=== PATIENT | male | born 1965 | race Two or more races ===

== ENCOUNTER → 2020-08-29 13:44 | Outpatient (BNVA) | payer BC, SELFPAY | PROVIDERS: PCP Nurse Practitioner Family; Visit Provider Surgery | DX: K62.89 Other specified diseases of anus and rectum (principal) | CPT/HCPCS: 46600 ==

== ENCOUNTER 2020-12-26 12:23 | Outpatient (REF) | payer BC, SELFPAY ==
[2020-12-26 14:22] LABS: Alanine Aminotransferase 27 U/L (0-40); Albumin Level 4.4 g/dL (3.5-5.0); Alkaline Phosphatase 87 U/L (39-117); Anion Gap 10 (12-20); Aspartate Amino Transferase 20 U/L (5-37); Bilirubin Total 0.5 mg/dL (0.0-1.0); Blood Urea Nitrogen 20 mg/dL (9-16); Calcium 9.4 mg/dL (8.4-10.2); Carbon Dioxide 27 mmol/L (22-29); Chloride 106 mmol/L (96-108); Cholesterol 188 mg/dL; Estimated Glomerular Filt Rate > 60; Glucose Fasting 96 mg/dL (60-99); HDL Cholesterol 43 mg/dL; LDL Cholesterol Calculated 118 mg/dl; Potassium 4.4 mmol/L (3.3-5.1); Sodium 139 mmol/L (135-145); Total Protein 7.5 g/dL (6.5-8.0); Triglycerides 136 mg/dL
[2020-12-26 14:45] LABS: TSH reflex Free T4 1.36 uIU/mL (0.32-4.0)
== END 2020-12-26 12:24 | disposition home or self-care (01) ==
LOC: HO.HMGCLDS 12:23
PROVIDERS: PCP Nurse Practitioner Family; Visit Provider Nurse Practitioner Family
DX: T78.40XA Allergy, unspecified, initial encounter (principal); X58.XXXA Exposure to other specified factors, initial encounter; Z12.5 Encounter for screening for malignant neoplasm of prostate
CPT/HCPCS: 36415; 80053; 80061; 84153; 84443

== ENCOUNTER 2021-06-24 10:46 | Outpatient (REF) | payer BC, SELFPAY ==
--- NOTE | ~2021-06-24 | XR_ITS ---
EXAMINATION: XR CERVICAL SPINE CLINICAL INFORMATION: M50.90 - Cervical disc disorder, unspecified COMPARISON: None TECHNIQUE: 3 views of the cervical spine were obtained. FINDINGS: Cervical vertebrae have normal height. Normal alignment. No fracture or subluxation. Mild spur at the anterior endplates at C5-C6. C5-C6 disc height slightly narrowed. Facet joints are normal. XR/XR cervical spine 3V IMPRESSION: Mild degenerative disc disease at C5-C6.
== END 2021-06-24 10:47 | disposition home or self-care (01) ==
LOC: HO.HMGCX 10:46
PROVIDERS: PCP Nurse Practitioner Family; Visit Provider Nurse Practitioner Family
DX: M50.90 Cervical disc disorder, unspecified, unspecified cervical region (principal)
CPT/HCPCS: 72040

== ENCOUNTER 2021-07-15 09:09 | Outpatient (RCR) | payer BC, SELFPAY ==
[2021-07-15 09:17] VITALS: BP 129/83; PULSE 80
--- NOTE | 2021-07-15 10:18 | MHC.PT.EP ---
[facility] [place] Office [place] Office [place] Office [address] [place] [address] [phone] F: [phone] F: [phone] F: [phone] F: [phone] Physical Therapy Plan of Care Date of Evaluation: Date of Surgery: NA Diagnosis: Cervical neck pain with evidence of disc disease Assessment: Corinna is a 55 year old male who is referred to PT for cervical neck pain with evidence of disc disease . He reports of having insidious onset of neck pain about a year back. 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 He reports of having 8/10 pain in B UT, neck and L UE. He presented with TTP over B UT, medial border of B scapula, decreased cervical ROM, decreased muscle strength, and impaired posture. He is independent with all ADLS but has pain with them and modifies the way he does them due to this. He would benefit from skilled PT to address the aforementioned impairments and improve tolerance to functional activities. Frequency and Duration: The patient will be seen 2/week for 5 weeks Short Term Goals: 1. Pt will present with centralized symptoms which will enable him to use his L UE more efficiently with self care activities in 2 weeks. 2. Pt will be able to move his neck through all planes of motion without pain which will enable him with drive without any pain in 3 weeks. Half-Way Goals: 1. Pt will demonstrate an increase in muscle strength by 1 grade which will enable him to perform all IADLS like cleaning, cooking, grocery without any pain in 4 weeks. 2. Pt will be independent with HEPs for symptom management and maintenance following d/c in 5 weeks. Treatment Plan: Modalities to reduce pain, spasms and effusion. Manual therapy to restore motion and function. Therapeutic exercise to improve strength and flexibility. Neuromuscular re-education for posture and balance. Therapeutic activities to return to functional activities of daily living. Electronically signed by: Shalini Randall PT DPT Please sign and return to therapist. Thank you for your referral.
--- NOTE | 2021-07-31 08:22 | MHC.PT.DC ---
[facility] [place] Office [place] Office [place] Office [address] [place] [address] [phone] F: [phone] F: [phone] F: [phone] F: [phone] Physical Therapy Discharge Report Diagnosis: Cervical neck pain with evidence of disc disease Date of Surgery: NA Date of Evaluation: 07/15/21 Date of Discharge: 07/31/21 Treatments to Date: 1 Cancellations to Date: 0 No Shows to Date: Discharge Status: Visit Non-compliance Discharge Summary: Ali no showed for 3 appointments after evaluation. Attempted to call the pt and left voice mail. Pt however did not respond to calls. He has therefore been d/c from therapy. Electronically signed by: Shalini Randall PT DPT Please sign and return to therapist. Thank you for your referral.
== END 2021-07-31 08:26 | disposition home or self-care (01) ==
LOC: HO.PT 09:09
PROVIDERS: PCP Nurse Practitioner Family; Visit Provider Nurse Practitioner Family
DX: M50.90 Cervical disc disorder, unspecified, unspecified cervical region (principal)
CPT/HCPCS: 97112; 97161

== ENCOUNTER 2022-03-11 16:19 | Outpatient (REF) | payer BC, SELFPAY ==
[2022-03-11 16:37] LABS: MANUAL DIFF FLAG NO
[2022-03-11 17:20] LABS: Appearance Urine CLEAR; Color Urine YELLOW; Glucose Urine UA NEG (NEG); Leukocyte Esterase Urine NEG (NEG); Nitrite Urine NEG (NEG); Urine Blood NEG (NEG); Urine Ketones NEG (NEG); Urine Protein NEG (NEG-TRACE)
[2022-03-11 17:20] LABS: Basophils Absolute Auto 0.1 X10*3/uL (0.0-0.2); Basophils Percent Auto 0.7 % (0-2); Eosinophils Absolute Auto 0.2 X10*3/uL (0.0-0.4); Eosinophils Percent Auto 2.1 % (0-4); Hematocrit 42.7 % (42.0-52.0); Imm Gran Abs Auto 0.02 X10*3/uL (0.00-0.03); Imm Gran Pct Auto 0.3 % (0.0-0.4); Lymphocytes Absolute Auto 2.3 X10*3/uL (1.2-4.9); Lymphocytes Percent Auto 32.5 % (20-40); Mean Corpuscular HGB Conc 35.1 g/dl (31.0-36.0); Mean Corpuscular Hemoglobin 29.4 pg (27.0-33.0); Mean Corpuscular Volume 83.7 fL (80.0-98.0); Mean Platelet Volume 9.7 fL (9.4-12.4); Monocytes Absolute Auto 0.6 X10*3/uL (0.1-1.2); Monocytes Percent Auto 7.9 % (2-11); Neutrophils Percent Auto 56.5 % (45-73); Platelet Count 299 X10*3/uL (160-400); Red Cell Distribution Width 12.5 % (11.0-16.0)
[2022-03-11 18:05] LABS: Alanine Aminotransferase 19 U/L (0-40); Albumin Level 4.5 g/dL (3.5-5.0); Alkaline Phosphatase 72 U/L (39-117); Anion Gap 15 (12-20); Aspartate Amino Transferase 22 U/L (5-37); Blood Urea Nitrogen 12 mg/dL (9-16); Calcium 9.4 mg/dL (8.4-10.2); Carbon Dioxide 24 mmol/L (22-29); Chloride 105 mmol/L (96-108); Cholesterol 157 mg/dL; Estimated Glomerular Filt Rate > 60; Glucose Fasting 85 mg/dL (60-99); HDL Cholesterol 43 mg/dL; LDL Cholesterol Calculated 101 mg/dl; Sodium 140 mmol/L (135-145); Total Protein 7.4 g/dL (6.5-8.0); Triglycerides 66 mg/dL
[2022-03-11 18:26] LABS: Prostate Specific Antigen Scr 0.85 ng/mL (<0.05-4.0); TSH reflex Free T4 1.16 uIU/mL (0.32-4.0)
== END 2022-03-11 16:20 | disposition home or self-care (01) ==
LOC: HO.LAB 16:19
PROVIDERS: PCP Nurse Practitioner Family; Visit Provider Nurse Practitioner Family
DX: Z00.00 Encounter for general adult medical examination without abnormal findings (principal); Z12.5 Encounter for screening for malignant neoplasm of prostate
CPT/HCPCS: 36415; 80053; 80061; 81003; 84153; 84443; 85025

== ENCOUNTER 2022-09-10 16:28 | Outpatient (REF) | payer BC, SELFPAY ==
[2022-09-10 16:39] LABS: MANUAL DIFF FLAG NO
[2022-09-10 17:03] LABS: Basophils Absolute Auto 0.1 X10*3/uL (0.0-0.2); Basophils Percent Auto 0.8 % (0-2); Eosinophils Absolute Auto 0.2 X10*3/uL (0.0-0.4); Eosinophils Percent Auto 3.1 % (0-4); Hematocrit 44.3 % (42.0-52.0); Hemoglobin 14.9 g/dl (14.0-18.0); Imm Gran Abs Auto 0.02 X10*3/uL (0.00-0.03); Imm Gran Pct Auto 0.3 % (0.0-0.4); Lymphocytes Absolute Auto 2.6 X10*3/uL (1.2-4.9); Lymphocytes Percent Auto 32.8 % (20-40); Mean Corpuscular HGB Conc 33.6 g/dl (31.0-36.0); Mean Corpuscular Hemoglobin 29.4 pg (27.0-33.0); Mean Corpuscular Volume 87.4 fL (80.0-98.0); Mean Platelet Volume 9.4 fL (9.4-12.4); Monocytes Absolute Auto 0.6 X10*3/uL (0.1-1.2); Monocytes Percent Auto 7.4 % (2-11); Neutrophils Absolute Auto 4.4 x10*3/uL (2.0-8.3); Neutrophils Percent Auto 55.6 % (45-73); Platelet Count 261 X10*3/uL (160-400); Red Blood Count 5.07 X10*6/uL (4.60-5.80); Red Cell Distribution Width 12.5 % (11.0-16.0); White Blood Count 7.8 X10*3/uL (4.8-10.8)
[2022-09-10 17:10] LABS: Appearance Urine Clear; Color Urine Dark Yellow; Glucose Urine UA Negative (Negative); Leukocyte Esterase Urine Negative (Negative); Nitrite Urine Negative (Negative); Specific Gravity - Urine >= 1.030 (1.005-1.025); Urine Blood Negative (Negative); Urine Ketones Negative (Negative); Urine Protein Negative (Neg-Trace)
[2022-09-10 17:37] LABS: Alanine Aminotransferase 24 U/L (0-40); Albumin Level 4.3 g/dL (3.5-5.0); Alkaline Phosphatase 70 U/L (39-117); Anion Gap 8 (12-20); Aspartate Amino Transferase 21 U/L (5-37); Bilirubin Total 0.9 mg/dL (0.0-1.0); Blood Urea Nitrogen 15 mg/dL (9-16); Calcium 9.3 mg/dL (8.4-10.2); Carbon Dioxide 28 mmol/L (22-29); Chloride 109 mmol/L (96-108); Cholesterol 197 mg/dL; Estimated Glomerular Filt Rate > 60; Glucose Fasting 76 mg/dL (60-99); HDL Cholesterol 41 mg/dL; LDL Cholesterol Calculated 142 mg/dl; Potassium 3.9 mmol/L (3.3-5.1); Sodium 141 mmol/L (135-145); Triglycerides 73 mg/dL
== END 2022-09-10 16:29 | disposition home or self-care (01) ==
LOC: HO.LAB 16:28
PROVIDERS: PCP Nurse Practitioner Family; Visit Provider Nurse Practitioner Family
DX: Z00.00 Encounter for general adult medical examination without abnormal findings (principal)
CPT/HCPCS: 36415; 80053; 80061; 81003; 84443; 85025

== ENCOUNTER 2023-05-25 10:35 | Outpatient (AMB) | payer BC, SELFPAY ==
--- NOTE | 2023-05-25 10:53 | AM.OFFWIN_ITS ---
Intake Vital Signs 05/25/23 10:55 Height 5 ft 8 in BP 122/70 Blood Pressure Location Lt brachial Position Sitting Pulse 76 Pulse Source Pulse Oximeter Temp 97.8 F Temp Source Temporal Artery Scan Pulse Oximetry (%) 98 Intake Visit Reasons: EP LT leg Swelling/BP/Hemorrhoids Intake Note: pt is here c/o leg swelling and hemorrhoids Patient Tobacco Use Status: Never used Tobacco Allergies SEASONAL ALLERGIES Allergy (Intermediate, Uncoded 05/25/23 10:56) RUNNY NOSE pollen Allergy (Unknown, Uncoded 05/25/23 10:56) Runny Nose Do you need a note to return to daycare/school/sports/work: Yes HPI HPI Comments History of Present Illness Details 57-year-old male that presents for multi ple complaints. Patient endorses leg swelling over the last few weeks as well as internal hemorrhoids pain, and occasional nausea. Denies fevers chills chest pain shortness of breath. [facility] Medical History High BMI Hypertension Rectal pain Social History Housing: House Alcohol intake: never Patient Tobacco Use Status: Never used Tobacco e-Cigarette/Vaping Use: Never Used Second Hand Smoke Exposure: No Current occupational status: employed Current occupation: [employer] Current occupational exposures/hazards: No Cognitive needs: No Hearing needs: No Vision needs: No Review of Systems GI Reports nausea Details: Anal Pain Physical Exam Vital Signs: Last Vital Signs Temp 97.8 F 05/25/23 10:55 Pulse 76 05/25/23 10:55 BP 122/70 05/25/23 10:55 Pulse Ox 98 05/25/23 10:55 Const General: healthy appearing, comfortable, no acute distress and alert Orientation/consciousness: patient oriented x3 Limitations: no limitations HEENT Head: Yes normal to inspection Ears: hearing grossly normal bilaterally Resp Effort & Inspection: normal respiratory effort and able to speak in complete sentences Cardio Rate: regular rate Skin General skin exam: no rashes or lesions noted Neuro General: patient oriented x3 Extrem General: Yes normal to inspection Assessment & Plan Assessment & Plan (1) Rectal pain: Code(s): K62.89 - Other specified diseases of anus and rectum (2) Leg swelling: Code(s): M79.89 - Other specified soft tissue disorders Plan Exam largely unremarkabl. Regard to patient's internal hemorrhoids recommend increasing daily fiber as well as oral with his previous surgeon. Will trial a short course of rectal suppository steroid. In addition patient's nausea could be related to GERD will start omeprazole. With patient is leuks wound patient very neuritic hydrochlorothiazide. Will add on a short course of p.o. Lasix 10 mg once daily and recommend follow PCP. Discharge instructions, follow up and treatment are discussed with patient in my usual fashion. Alternatives in treatment are also discussed. The patient will return for worsening symptoms or as needed. Advised that any labs/imaging ordered will be followed up on and contact made if further treatment needed. Counseled that patient's condition may require further evaluation and/or treatment. Symptoms of concern for worsening disorder discussed in detail in my customary manner. Patient does verbalize understanding of the plan, there are no apparent barriers to communication. The patient is given the opportunity to ask questions and have them answered to his/her satisfaction Medications: New furosemide 10 mg (1/2 x 20 mg) PO DAILY 3 days 2 tabs 0RF hydrocortisone acetate Use for no more than 7 days 25 mg AR DAILY 12 ea 0RF omeprazole 20 mg PO DAILY 30 caps 0RF Coding Level of Care Code Est Pt Level 4 (05909) Diagnoses Rectal pain K62.89 Leg swelling M79.89
[2023-05-25 10:55] VITALS: BP 122/70; PULSE 76; TEMP 36.6; O2SAT 98
== END 2023-05-25 11:16 | disposition home or self-care (01) ==
PROVIDERS: PCP Nurse Practitioner Family; Visit Provider Physician Assistant
DX: K62.89 Other specified diseases of anus and rectum (principal); M79.89 Other specified soft tissue disorders
CPT/HCPCS: 99214

== ENCOUNTER 2023-09-14 14:46 | Outpatient (AMB) | payer BC, SELFPAY ==
[2023-09-14 14:50] VITALS: BP 130/76; PULSE 63; O2SAT 99; BMI 32.5
--- NOTE | 2023-09-14 14:50 | A.OFFPC_ITS ---
Vital Signs 09/14/23 14:50 Height 5 ft 8 in Weight 213 lb 8 oz BMI 32.5 BP 130/76 Blood Pressure Location Lt brachial Position Sitting Pulse 63 Pulse Source Pulse Oximeter Pulse Oximetry (%) 99 Oxygen Delivery Method Room Air Intake Visit Reasons: FMLA paper work Intake Note: Pt is here to fill out FMLA paperwork Allergies SEASONAL ALLERGIES Allergy (Intermediate, Uncoded 09/14/23 14:52) RUNNY NOSE pollen Allergy (Unknown, Uncoded 09/14/23 14:52) Runny Nose Medication List - Last Reconciled 09/14/23 by SHAYLEE Bro-JAMES betamethasone dipropionate 0.05% 1 appl topical DAILY PRN cetirizine (Allergy Relief (cetirizine)) 10 mg PO DAILY PRN hydrochlorothiazide 25 mg PO QAM hydrocortisone acetate 25 mg [place] DAILY hydrocortisone acetate (Anusol-HC) 25 mg IL BID PRN omeprazole 20 mg PO DAILY Tobacco use date assessed: 09/14/23 Dental Screening Dental Screen Date: 09/14/23 Did you have a dental visit in the last 12 months?: Yes Did you have a dental problem in the last 6 months where you did not have access to dental care?: No Was dental information given to patient?: Patient has dentist HPI FMLA paper work HPI Details Pt reports ongoing allergy symptoms. He reports that these cause him to have to leave work or miss days. Pt is already taking cetirizine for his symptoms, informed pt that he can go up to 20mg bid if needed. Will fill out pt's FMLA. Denies fever, chills, and dizziness. [facility] Medical History High BMI Hypertension Rectal pain Social History Housing: House Alcohol intake: never Patient Tobacco Use Status: Never used Tobacco e-Cigarette/Vaping Use: Never Used Second Hand Smoke Exposure: No Current occupational status: employed Current occupation: [employer] Current occupational exposures/hazards: No Cognitive needs: No Hearing needs: No Vision needs: No Questionnaire Thrive Questionnaire Date Thrive assessed: 09/09/22 AUDIT C Alcohol Use Questionnaire (AUDIT-C) 1. How often do you have a drink containing alcohol?: Never Total Score: 0 KYA-7 AMB Questionnaire KYA-7 Date KYA - 7 assessed: 09/09/22 Source: Developed by Drs. Boubacar Davidson, Pauly Cordero, Chuck White and colleagues, with an educational jessica from [employer]. Review of Systems Const Reports as per HPI Physical exam (Primary Care) Vital Signs: Last Vital Signs Pulse 63 09/14/23 14:50 BP 130/76 09/14/23 14:50 Pulse Ox 99 09/14/23 14:50 Oxygen Delivery Method Room Air 09/14/23 14:50 BMI result Body Mass Index 32.5 Tobacco/Smoking Status: Tobacco use Status Tobacco use date assessed 09/14/23 09/14/23 14:56 Patient Tobacco Use Status Never used Tobacco 09/14/23 14:56 e-Cigarette/Vaping Use Never Used 09/14/23 14:56 Thrive Assessment: Date of Thrive Assessment Date Thrive assessed 09/09/22 09/14/23 14:56 Const General: cooperative Nutritional Appearance: obese Orientation/consciousness: patient oriented x3 Resp Effort & Inspection: normal respiratory effort Auscultation: clear to auscultation bilaterally Cardio Rate: regular rate Rhythm: regular rhythm Heart sounds: S1 normal heart sound present and S2 normal heart sound present Neuro General: patient oriented x3 Psych Appearance: grossly normal Mental Status: mental status grossly normal Speech and movement: Normal speech and movement present Affect: normal affect Attitude: cooperative Thought process: Normal thought process present Thought content: Normal thought content present Insight: Good insight present (Psych) Judgement: Good judgement present (Psych) Assessment and Plan Assessment & Plan (1) Allergy: Code(s): T78.40XA - Allergy, unspecified, initial encounter Plan The patient agreed to the use of a medical educator for this encounter. Scribed for ANA LUISA Carrera by sam Correia scribe, on 09/14/2023 at 15:15 EST. Medications: New hydrocortisone acetate (Anusol-HC) 25 mg [place] BID PRN 24 ea 0RF hemorrhoids Coding Level of Care Code Est Pt Level 3 (21460) Diagnoses Allergy T78.40XA
== END 2023-09-14 15:27 | disposition home or self-care (01) ==
PROVIDERS: PCP Nurse Practitioner Family; Visit Provider Nurse Practitioner Family
DX: T78.40XA Allergy, unspecified, initial encounter (principal)
CPT/HCPCS: 99213

== ENCOUNTER 2023-11-03 10:58 | Outpatient (AMB) | payer BC, SELFPAY ==
[2023-11-03 11:10] VITALS: BP 128/82; PULSE 75; TEMP 36.7; O2SAT 100; BMI 32.0
--- NOTE | 2023-11-03 11:10 | AM.OFFWIN_ITS ---
Intake Vital Signs 11/03/23 11:10 Height 5 ft 8 in Weight 210 lb 4 oz BMI 32.0 BP 128/82 Blood Pressure Location Lt brachial Position Sitting Pulse 75 Pulse Source Pulse Oximeter Temp 98.1 F Temp Source Oral Pulse Oximetry (%) 100 Oxygen Delivery Method Room Air Intake Visit Reasons: EP Ear pain/Sinus, Congestion Intake Note: Pt presents to the office today for ear pain,sinus pressure x1 week. Patient Tobacco Use Status: Never used Tobacco Allergies SEASONAL ALLERGIES Allergy (Intermediate, Uncoded 11/03/23 11:52) RUNNY NOSE pollen Allergy (Unknown, Uncoded 11/03/23 11:52) Runny Nose Medication List - Last Reconciled 11/03/23 by SARITA Woods betamethasone dipropionate 0.05% 1 appl topical DAILY PRN betamethasone dipropionate 0.05% 1 appl topical BEDTIME PRN cephalexin 500 mg PO BID 7 days cetirizine (Allergy Relief (cetirizine)) 10 mg PO DAILY PRN hydrochlorothiazide 25 mg PO QAM hydrocortisone acetate (Anusol-HC) 25 mg [place] BID PRN omeprazole 20 mg PO DAILY penicillin V potassium 500 mg PO TID HPI HPI Comments History of Present Illness Details 58-year-old male presents today complain ing of right ear pain and preauricular lymphadenopathy. He also is complaining of cracking of the skin in between his toes. The patient was seen by his dentist to put him on penicillin that has not resolved his ear pain PFSH Medical History Rectal pain High BMI Hypertension Social History Housing: House Alcohol intake: never Patient Tobacco Use Status: Never used Tobacco e-Cigarette/Vaping Use: Never Used Second Hand Smoke Exposure: No Current occupational status: employed Current occupation: [employer] Current occupational exposures/hazards: No Cognitive needs: No Hearing needs: No Vision needs: No Review of Systems Const All systems reviewed & are unremarkable except as noted in HPI and below Physical Exam Vital Signs: Last Vital Signs Temp 98.1 F 11/03/23 11:10 Pulse 75 11/03/23 11:10 BP 128/82 11/03/23 11:10 Pulse Ox 100 11/03/23 11:10 Oxygen Delivery Method Room Air 11/03/23 11:10 BMI result Body Mass Index 32.0 HEENT Head: Yes normal to inspection, Yes normocephalic and Yes atraumatic Ears: hearing grossly normal bilaterally and TM abnormal bulging and erythematous General nose exam: Normal external nose present Face and sinus: Yes normal facial exam Resp Effort & Inspection: normal respiratory effort Auscultation: clear to auscultation bilaterally Cardio Rate: regular rate Rhythm: regular rhythm Skin Lesions: lesion noted (Cracking into the skin between the 4th and 5th toe.) Assessment & Plan Assessment & Plan (1) Otitis media, right: Code(s): H66.91 - Otitis media, unspecified, right ear Plan: Change his antibiotic to cephalexin for a year and will follow-up as needed (2) Shruthi infection: Code(s): B37.9 - Candidiasis, unspecified Plan: Keep his feet clean and dry and use the betamethasone ointment. Plan See plan Medications: New betamethasone dipropionate 0.05% 1 appl topical BEDTIME PRN 15 grams 0RF itching cephalexin 500 mg PO BID 14 caps 0RF 7 days Coding Level of Care Code Est Pt Level 3 (60989) Diagnoses Otitis media, right H66.91 Shruthi infection B37.9
== END 2023-11-03 12:42 | disposition home or self-care (01) ==
PROVIDERS: PCP Nurse Practitioner Family; Visit Provider Physician Assistant Medical
DX: H66.91 Otitis media, unspecified, right ear (principal); B37.9 Candidiasis, unspecified
CPT/HCPCS: 99213

== ENCOUNTER 2024-02-08 13:28 | Outpatient (AMB) | payer BC, SELFPAY ==
--- NOTE | 2024-02-08 13:31 | A.OFFPC_ITS ---
Vital Signs 02/08/24 13:36 02/08/24 14:15 Height 5 ft 8 in Weight 209 lb BMI 31.8 BP 140/100 H 130/88 Blood Pressure Location Lt brachial Lt brachial Position Sitting Sitting Pulse 82 Pulse Source Pulse Oximeter Pulse Oximetry (%) 98 Oxygen Delivery Method Room Air Intake Visit Reasons: Annual PE Intake Note: Patient here for physical exam. Allergies SEASONAL ALLERGIES Allergy (Intermediate, Uncoded 02/08/24 13:37) RUNNY NOSE pollen Allergy (Unknown, Uncoded 02/08/24 13:37) Runny Nose Tobacco use date assessed: 09/14/23 Dental Screening Dental Screen Date: 09/14/23 HPI Annual PE HPI Details Pt is here for a PE. Will order labs. Colon screen is up to date. Due for PSA, will order. Denies dribbling with urination, weak stream, and frequent nocturia. Pt reports some right chest discomfort with excessive physical activity. He reports that this does not radiate. Will do an EKG in office today. Will also order stress test. Pt reports a hx of ingrown toenails. His right big toenail was ingrown and pt's partially removed this. Pt states this will become ingrown again. He is requesting a referral to podiatry, will refer. Pt has been intermittently fasting and losing weight. [facility] Medical History Rectal pain High BMI Hypertension Social History Housing: House Alcohol intake: never Patient Tobacco Use Status: Never used Tobacco e-Cigarette/Vaping Use: Never Used Second Hand Smoke Exposure: No Current occupational status: employed Current occupation: [employer] Current occupational exposures/hazards: No Cognitive needs: No Hearing needs: No Vision needs: No Questionnaire Thrive Questionnaire Date Thrive assessed: 09/09/22 KYA-7 AMB Questionnaire KYA-7 Date KYA - 7 assessed: 09/09/22 Source: Developed by Drs. Boubacar Davidson, Pauly Cordero, Chuck White and colleagues, with an educational jessica from [employer]. Review of Systems Const Denies chills and Denies fever(s) Eyes Denies blurry vision ENT Denies vertigo, Denies dizziness and Denies sore throat Card Denies chest pain at rest, Reports chest pain with activity, Denies diaphoresis, Denies dyspnea and Denies dyspnea on exertion Resp Denies cough, Denies dyspnea, Denies dyspnea on exertion and Denies wheezing GI Denies abdominal pain, Denies melena, Denies hematochezia, Denies constipation, Denies diarrhea and Denies loose stools Denies hematuria Musc Denies numbness and Denies tingling Skin/Breast Denies lesions Neuro Denies vertigo, Denies dizziness, Denies numbness and Denies tingling Psych Denies anxiety, Denies depression, Denies homicidal ideation, Denies suicidal ideation and Denies other (substance abuse) Aller/Immun Denies wheezing Physical exam (Primary Care) Vital Signs: Last Vital Signs Pulse 82 02/08/24 13:36 BP 130/88 02/08/24 14:15 Pulse Ox 98 02/08/24 13:36 Oxygen Delivery Method Room Air 02/08/24 13:36 BMI result Body Mass Index 31.8 Tobacco/Smoking Status: Tobacco use Status Tobacco use date assessed 09/14/23 02/08/24 13:35 Patient Tobacco Use Status Never used Tobacco 02/08/24 13:35 e-Cigarette/Vaping Use Never Used 02/08/24 13:35 Thrive Assessment: Date of Thrive Assessment Date Thrive assessed 09/09/22 02/08/24 13:35 Const General: cooperative Nutritional Appearance: well nourished Orientation/consciousness: patient oriented x3 HENMT Head: Yes normal to inspection, Yes normocephalic and Yes atraumatic Ears: TM's normal bilaterally Eyes General: appearance normal, both eyes and all related structures Alignment and Position: alignment normal and position normal Neck Neck: Yes normal visual inspection and Yes no lymphadenopathy Thyroid: Thyroid normal Resp Effort & Inspection: normal respiratory effort Auscultation: clear to auscultation bilaterally Cardio Rate: regular rate Rhythm: regular rhythm Heart sounds: S1 normal heart sound present, S2 normal heart sound present and no murmurs GI Palpation (GI): Soft to palpation and nontender Auscultation: normal bowel sounds Male General Exam: Yes normal external exam Penis: normal penis Scrotum: scrotum normal, testes descended bilaterally and no inguinal hernias Testes: no testicular mass Skin Rashes: no rashes Neuro General: patient oriented x3, moves all extremities, no focal motor deficits and deep tendon reflexes 2+ bilaterally Romberg Test: Negative Extrem Other: tenderness to right big toe along lateral nail fold Psych Appearance: grossly normal Mental Status: mental status grossly normal Speech and movement: Normal speech and movement present Affect: normal affect Attitude: cooperative Thought process: Normal thought process present Thought content: Normal thought content present Insight: Good insight present (Psych) Judgement: Good judgement present (Psych) Assessment and Plan Assessment & Plan (1) Physical exam: Code(s): Z00.00 - Encounter for general adult medical examination without abnormal findings Plan: Labs ordered (2) Screening PSA (prostate specific antigen): Code(s): Z12.5 - Encounter for screening for malignant neoplasm of prostate Plan: PSA ordered (3) Chest pressure: Code(s): R07.89 - Other chest pain Plan: EKG benign, stress test ordered (4) Ingrown toenail: Code(s): L60.0 - Ingrowing nail Plan: referring to podiatry Plan The patient agreed to the use of a internist medical doctor md for this encounter. Scribed for SHAYLEE Carrera-BC by Shaniqua Meyer internist medical doctor md, on 02/08/2024 at 13:50 EST. Orders: Orders Complete Blood Count Auto Diff Today Z00.00 - Encounter for general adult medical examination without abnormal findings Comprehensive [place]. Panel Fast Today Z00.00 - Encounter for general adult medical examination without abnormal findings UA CC w/rflx Micro + Cult Today Z00.00 - Encounter for general adult medical examination without abnormal findings Prostate Specific Antigen Scr Today Z12.5 - Encounter for screening for malignant neoplasm of prostate AMB EKG-In Office Today R07.89 - Other chest pain CA stress test Today R07.89 - Other chest pain TSH reflex Free T4 Today Z00.00 - Encounter for general adult medical examination without abnormal findings Lipid Panel Today Z00.00 - Encounter for general adult medical examination without abnormal findings NM cardiolite stress test Today R07.89 - Other chest pain Referrals Podiatry Referral L60.0 - Ingrowing nail Coding Level of Care Code Est Pt Prev Care 40-64y(89141) Diagnoses Physical exam Z00.00 Screening PSA (prostate specific antigen) Z12.5 Chest pressure R07.89 Ingrown toenail L60.0
[2024-02-08 13:36] VITALS: BP 140/100; PULSE 82; O2SAT 98; BMI 31.8
[2024-02-08 14:15] VITALS: BP 130/88
== END 2024-02-08 14:39 | disposition home or self-care (01) ==
PROVIDERS: PCP Nurse Practitioner Family; Visit Provider Nurse Practitioner Family
DX: Z00.00 Encounter for general adult medical examination without abnormal findings (principal); Z12.5 Encounter for screening for malignant neoplasm of prostate; R07.89 Other chest pain; L60.0 Ingrowing nail
CPT/HCPCS: 99396

== ENCOUNTER 2024-02-08 14:40 | Outpatient (REF) | payer BC, SELFPAY ==
[2024-02-08 16:15] LABS: MANUAL DIFF FLAG NO
[2024-02-08 16:27] LABS: Basophils Percent Auto 0.5 % (0-2); Eosinophils Absolute Auto 0.2 X10*3/uL (0.0-0.4); Eosinophils Percent Auto 2.5 % (0-4); Hematocrit 42.3 % (42.0-52.0); Hemoglobin 14.4 g/dl (14.0-18.0); Imm Gran Abs Auto 0.03 X10*3/uL (0.00-0.03); Imm Gran Pct Auto 0.5 % (0.0-0.4); Lymphocytes Percent Auto 31.2 % (20-40); Mean Corpuscular Hemoglobin 29.6 pg (27.0-33.0); Mean Corpuscular Volume 86.9 fL (80.0-98.0); Mean Platelet Volume 9.6 fL (9.4-12.4); Monocytes Absolute Auto 0.5 X10*3/uL (0.1-1.2); Monocytes Percent Auto 7.4 % (2-11); Neutrophils Absolute Auto 3.8 x10*3/uL (2.0-8.3); Neutrophils Percent Auto 57.9 % (45-73); Platelet Count 260 X10*3/uL (160-400); Red Blood Count 4.87 X10*6/uL (4.60-5.80); Red Cell Distribution Width 12.5 % (11.0-16.0); White Blood Count 6.5 X10*3/uL (4.8-10.8)
[2024-02-08 16:29] LABS: Appearance Urine Clear; Color Urine Yellow; Glucose Urine UA Negative (Negative); Leukocyte Esterase Urine Negative (Negative); Nitrite Urine Negative (Negative); PH 6.5 (5.0-9.0); Specific Gravity - Urine 1.025 (1.005-1.025); Urine Blood Negative (Negative); Urine Ketones Negative (Negative); Urine Protein Negative (Neg-Trace)
[2024-02-08 16:37] LABS: Alanine Aminotransferase 27 U/L (0-40); Albumin Level 4.2 g/dL (3.5-5.0); Alkaline Phosphatase 69 U/L (39-117); Anion Gap 11 (12-20); Aspartate Amino Transferase 22 U/L (5-37); Bilirubin Total 0.5 mg/dL (0.0-1.0); Blood Urea Nitrogen 15 mg/dL (9-16); Calcium 9.3 mg/dL (8.4-10.2); Carbon Dioxide 25 mmol/L (22-29); Chloride 108 mmol/L (96-108); Cholesterol 177 mg/dL (<200); Estimated Glomerular Filt Rate > 60; Glucose Fasting 91 mg/dL (60-99); HDL Cholesterol 43 mg/dL (>40); LDL Cholesterol Calculated 114 mg/dL (<100); Potassium 3.9 mmol/L (3.3-5.1); Sodium 140 mmol/L (135-145); Total Protein 7.1 g/dL (6.5-8.0); Triglycerides 102 mg/dL (<150)
[2024-02-08 16:52] LABS: Prostate Specific Antigen Scr 1.47 ng/mL (<0.05-4.0)
[2024-02-08 16:53] LABS: TSH reflex Free T4 1.06 uIU/mL (0.32-4.0)
== END 2024-02-08 14:41 | disposition home or self-care (01) ==
LOC: HO.HMGCLDS 14:40
PROVIDERS: PCP Nurse Practitioner Family; Visit Provider Nurse Practitioner Family
DX: Z00.00 Encounter for general adult medical examination without abnormal findings (principal); Z12.5 Encounter for screening for malignant neoplasm of prostate
CPT/HCPCS: 36415; 80053; 80061; 81003; 84153; 84443; 85025

== ENCOUNTER → 2024-03-21 08:20 | Outpatient (REF) | payer BC, SELFPAY ==
--- NOTE | ~2024-03-21 | NM_ITS ---
Exercise Myocardial perfusion study Indication: Chest pain to evaluate for myocardial ischemia Technique: The patient was brought in for an exercise perfusion study on 03/21/2024. Patient performed exercise as per Randell protocol and was injected 30 mCi of sestamibi was given intravenously one target HR was achieved. Images were obtained using the SPECT gamma camera interlaced with the gating device. Images were obtained in supine position. Resting perfusion study was performed on 03/22/2024. Patient was administered 30 mCi of sestamibi intravenously at rest. Images were then obtained in supine position. Images obtained with and without CT attenuation. Total DLP 80 mGy-cm. Images were processed with the software and compared side to side in short axis, horizontal long axis and vertical long axis views. Findings: The stress perfusion study showed both attenuated as well as non attenuated corrected images show normal uptake of radiotracer in all segment of LV myocardium.. The gated study shows normal LV systolic function with calculated LVEF of 60%. LV cavity is normal in size. The gated study shows normal systolic wall thickening and contraction of all segments. There is no transient ischemic dilation. Resting study shows no change in perfusion pattern compared to stress perfusion study. Gating at rest reveals normal systolic wall motion with ejection fraction at 76%. The findings are consistent with normal myocardial perfusion. NM/NM cardiolite stress test Impression: 1. Normal myocardial perfusion 2. Gated LVEF is 60% 3. Transient ischemic dilatation not present Stress EKG is negative for ischemia
--- NOTE | 2024-03-21 08:23 | CA_ITS ---
Acquisition Time: 2024-03-21 09:06:54 Total Exercise Time: 00:08:40 Test Indications: CP Medications: SEE H Protocol: [place] Max HR: 142 BPM 87% of Pred: 162 BPM Max BP: 142/070 mmHG Max Work Load: 10.1 METS Exercise stress test exercise 8 min 40 sec of [place] protocol achieving 87% MPHR, without anginal symptoms, with isolated PVC, with normotensive response to exercise, without EKG changes. Nuclear images pending. Test reviewed with Dr. Whyte. T wave inversion in V4-V6 resolved with limb lead placement Referred By: Jim Castellanos Overread By: Radha Kimble
== END ==
LOC: HO.CARD 08:20
PROVIDERS: PCP Nurse Practitioner Family; Visit Provider Nurse Practitioner Family
DX: R07.89 Other chest pain (principal)
CPT/HCPCS: 78452; 93017; A9500

== ENCOUNTER → 2024-03-21 08:23 | Outpatient (BNV) | payer BC, SELFPAY | PROVIDERS: PCP Nurse Practitioner Family; Visit Provider Nurse Practitioner | DX: R07.9 Chest pain, unspecified (principal) | CPT/HCPCS: 78452; 93016; 93018 ==

== ENCOUNTER 2024-08-14 11:34 | Outpatient (AMB) | payer BC, SELFPAY ==
--- NOTE | 2024-08-14 11:36 | A.OFFPC_ITS ---
Vital Signs 08/14/24 11:37 Height 5 ft 8 in Weight 212 lb 4 oz BMI 32.3 BP 120/70 Blood Pressure Location Rt brachial Position Sitting Pulse 80 Pulse Source Pulse Oximeter Pulse Oximetry (%) 98 Intake Visit Reasons: 6 month follow up Intake Note: pt is here for 6 mon f/up Account Service Associate Required: No Accompanied by: Self / Same As Patient Allergies SEASONAL ALLERGIES Allergy (Intermediate, Uncoded 08/14/24 11:37) RUNNY NOSE pollen Allergy (Unknown, Uncoded 08/14/24 11:37) Runny Nose Medication List - Last Reconciled 08/14/24 by Jim Castellanos, [facility]- betamethasone dipropionate 0.05% 1 appl topical DAILY PRN betamethasone dipropionate 0.05% 1 appl topical BEDTIME PRN cetirizine (Allergy Relief (cetirizine)) 10 mg PO DAILY PRN hydrochlorothiazide 25 mg PO QAM hydrocortisone acetate (Anusol-HC) 25 mg RI BID PRN omeprazole 20 mg PO DAILY Tobacco use date assessed: 08/14/24 Dental Screening Dental Screen Date: 08/14/24 Did you have a dental visit in the last 12 months?: Yes Did you have a dental problem in the last 6 months where you did not have access to dental care?: No Was dental information given to patient?: Patient has dentist HPI 6 month follow up HPI Details Chief Complaint Persistent and recurrent redness in the groin region. History of Present Illness The patient is a 58-year-old male presenting with chronic groin dermatitis. This condition has been ongoing in the bilateral groin region, characterized mainly by significant redness and a macular erythematous rash. The patient reports trying various topical creams over time, which offer temporary relief but fail to resolve the issue completely. He has been managing this condition by keeping the area dry. There is no mention of associated systemic symptoms such as fever, chills, or malaise. The issue persists despite past interventions. HTN: stable Social History Health Maintenance - Liver function tests scheduled for tod ay to evaluate suitability for oral medication. Review of Systems denies any CP, SOB, ESCOBAR, blurred vision, weeping from skin Physical Exam General: Cooperative, healthy appearing, comfortable, no acute distress and well developed Orientation: Patient oriented x3 Limitations: No limitations Head: Normal to inspection Ears: Hearing grossly normal bilaterally Nose: Normal external nose present Face and sinus: Normal facial exam Eyes: Appearance normal, both eyes and all related structures Neck: Normal visual inspection and Yes full ROM Respiratory: Normal respiratory effort and able to speak in complete sentences. Clear to auscultation bilaterally Cardiovascular: Regular rate and rhythm. Normal S1 and S2 GI: Normal to inspection. Soft to palpation and nontender Skin: Significant redness, macular erythematous in bilateral groin region Neuro: Patient oriented x3 Extremities: Normal to inspection Results Plan - Obtain liver function tests today to e nsure suitability for oral medication management. - Initiate oral medication for groin tima matitis following confirmation of normal liver function test results. Patient was informed and verbally consented to the use of an ambient scribe for clinic note documentation during this visit. Discussion Notes I discussed with the patient the nature of his chronic groin dermatitis and the limitations of topical treatments he has been using. I explained the potential benefits of transitioning to an oral medication regimen, while emphasizing the necessity of first ensuring adequate liver function through blood tests. I reinforced the importance of keeping the affected area dry and outlined a plan moving forward based on the results of his liver function tests. I advised the patient that follow-up appointments would be necessary to assess response to the new treatment. Patient Instructions - Undergo liver function tests today as discussed. - Continue current practice of keeping t he groin area dry. - Follow the new medication regimen as d iscussed after confirming liver health. - Contact our office if symptoms worsen or do not improve with the new medication. - Schedule follow-up appointments as dir ected to monitor treatment efficacy. [facility] Medical History Rectal pain High BMI Hypertension Surgical History No pertinent past surgical history Social History Housing: House Alcohol intake: never Patient Tobacco Use Status: Never used Tobacco e-Cigarette/Vaping Use: Never Used Second Hand Smoke Exposure: No Current occupational status: employed Current occupation: [employer] Current occupational exposures/hazards: No Cognitive needs: No Hearing needs: No Vision needs: No Questionnaire PHQ-9 Over the last 2 weeks, how often have you been bothered by any of the following problems? 1. Little interest or pleasure in doing things: not at all 2. Feeling down, depressed, or hopeless: not at all 3. Trouble falling or staying asleep, or sleeping too much: not at all 4. Feeling tired or having little energy: not at all 5. Poor appetite or overeating: not at all 6. Feeling bad about yourself - or that you are a failure or have let yourself or your family down: not at all 7. Trouble concentrating on things, such as reading the newspaper or watching television: not at all 8. Moving or speaking so slowly that other people could have noticed. Or the opposite - being so fidgety or restless that you have been moving around a lot more than usual: not at all 9. Thoughts that you would be better off or of hurting yourself in some wa y: not at all Total score: 0 Source: Developed by Drs. Boubacar Davidson, Pauly Cordero, Chuck White and colleagues, with an educational jessica from [employer]. Thrive Questionnaire Date Thrive assessed: 08/11/24 I am a: Patient What is your living situation today?: I have a steady place to live Within the past 12 months, did the food you bought not last and you didn't have the money to get more?: Never true Within the past 12 months, did you worry whether your food would run out before you got money to buy more?: Never true Do you have trouble paying for medicines?: No Do you have trouble getting transportation to medical appointments?: No Do you have trouble paying your heating and electricity bill?: I choose not to answer this question Do you have trouble taking care of your child, family member or friend?: No Do you have trouble with day-to-day activities such as bathing, preparing meals, shopping, managing finances, etc.?: No Are you currently unemployed and looking for a job?: No Are you interested in more education?: No Please select the resources that you would like help with: None Currently or been in a relationship where the following occur: I choose not to answer THRIVE Score: 0 AUDIT C Alcohol Use Questionnaire (AUDIT-C) 1. How often do you have a drink containing alcohol?: Never 3. How often do you have six or more drinks on one occasion?: Never Total Score: 0 KYA-7 AMB Questionnaire KYA-7 Date KYA - 7 assessed: 09/09/22 Feeling nervous, anxious, or on edge: 0 = Not at all Not being able to stop or control worryin = Not at all Worrying too much about different things: 0 = Not at all Trouble relaxin = Not at all Being so restless that it is hard to sit still: 0 = Not at all Becoming easily annoyed or irritable: 0 = Not at all Feeling afraid as if something awful might happen: 0 = Not at all Total KYA-7 score (0-4 normal; 5-9 mild; 10-14 moderate; 15-21 severe): 0 Source: Developed by Drs. Boubacar Davidson, Pauly Cordero, Chuck White and colleagues, with an educational jessica from [employer]. Physical exam (Primary Care) Vital Signs: Last Vital Signs Pulse 80 08/14/24 11:37 BP 120/70 08/14/24 11:37 Pulse Ox 98 08/14/24 11:37 BMI result Body Mass Index 32.3 Tobacco/Smoking Status: Tobacco use Status Tobacco use date assessed 08/14/24 08/14/24 11:43 Patient Tobacco Use Status Never used Tobacco 08/14/24 11:43 e-Cigarette/Vaping Use Never Used 08/14/24 11:43 PHQ-9: PHQ-9 Score PHQ-9: Total score 0 08/14/24 11:43 Thrive Assessment: Date of Thrive Assessment Date Thrive assessed 08/11/24 08/14/24 11:43 Currently or been in a relationship where the following occur: I choose not to answer Coding Level of Care Code Est Pt Level 3 (00125) Diagnoses Hypertension I10 Tinea cruris B35.6 Assessment & Plan Assessment & Plan (1) Hypertension: Code(s): I10 - Essential (primary) hypertension Category: Medical (2) Tinea cruris: Code(s): B35.6 - Tinea cruris Category: Medical Plan . Orders: Orders Comprehensive [place]. Panel Fast Today I10 - Essential (primary) hypertension Lipid Panel Today I10 - Essential (primary) hypertension Complete Blood Count Auto Diff Today I10 - Essential (primary) hypertension TSH reflex Free T4 Today I10 - Essential (primary) hypertension UA CC w/rflx Micro + Cult Today I10 - Essential (primary) hypertension Medications: New terbinafine HCl 250 mg PO DAILY 10 tabs 0RF 10 days
[2024-08-14 11:37] VITALS: BP 120/70; PULSE 80; O2SAT 98; BMI 32.3
--- OUTSIDE RECORDS SUMMARY | 2024-08-14 13:21 | XMS_ITS ---
Author Organization [facility] Address [address] [place] [address] Care Team Providers Care Digitizer Operator Name Role Phone Jim Wilkes Primary Care Provider Unav ailable Alonso Klein Unavailable [phone] REASON FOR VISIT 2 inch [place], toe ho Encounters Encounter Location Date Provider Diagnosis [facility] [address] [address] 06/14/2024 Alonso Klein Plan Of Treatment No Information Progress Notes * Corinna FIOREDOB:1965 (58 yo M)Acc No.[id number]:06/14/2024 Patient:?Corinna Fiore :1965???Age:58 Y???Sex:Male Address:[address] [place] [address], [address] * true * Date:? Generated for Can alcocer/Mary/eTransmitting on:?08/14/2024 01:21 PM EST
--- OUTSIDE RECORDS SUMMARY | 2024-08-14 13:21 | XMS_ITS | Patient Health Record ---
Author Organization [facility] Address [address] [place] [address] Care Team Providers Care Banking Analyst Name Role Phone Jim Wilkes Primary Care Provider Alonso Ordaz Unavailable [phone] Allergies Allergen (clinical drug ingredient) Drug/Non Drug Allergy documented on EMR Reaction Allergy Type Onset Date Status Pollen Pollen runny nose Allergy Active Reason For Referral No Information Medications Medication SIG (Take, Route, Frequency, Duration) Notes Start Date End Date Status Multivitamin Active Furosemide 20 MG Oral for 4 Days Active Omeprazole 20 MG Oral for 30 Days Active hydroCHLOROthiazide 25 MG Oral for 90 Days Active Ciclopirox Olamine 0.77 % 1 application Externally Twice a day to skin of feet including between the toes for 30 days Active Social History Tobacco Use: Social History Observation Description Date Details (start date - stop date) Never Smoker NA - NA Tobacco Use/Smoking Question Answer Notes Are you a: nonsmoker Additional Findings: Tobacco Non-User Current no n-smoker Alcohol Screen Question Answer Notes Did you have a drink containing alcohol in the p ast year? No Points 0 Interpretation Negative Tobacco use other than smoking: Question Answer Notes Are you an other tobacco user? No Vital Signs Height 5ft 8in in 06/14/2024 Weight 220 lbs 06/14/2024 BMI 33.45 kg/m2 06/14/2024 Procedures Procedure Date Ordered Date Performed Result Body Sit e [id number] Plate 06/14/2024 N/A Encounters Encounter Location Date Provider Diagnosis [facility] [address] [address] 06/14/2024 Alonso Latoya Ingrown nail L60.0 and Tinea pedis of both feet B35.3 [facility] [address] [place] [address] 06/14/2024 Alonso Klein Assessments Encounter Date Diagnosis (ICD Code) Assessment Notes Treatment Notes Treatment Clinical Notes Section Notes 06/14/2024 Ingrown nail (ICD-10 - L60.0) 06/14/2024 Tinea pedis of both feet (ICD-10 - B35.3) Plan Of Treatment Pending Test Test Name Order Date [id number] Plate 06/14/2024 Insurance Providers Payer Name Payer Address Payer Phone Subscriber Number Group Number Insured Name Patient Relationship to Insured Coverage Start Date Coverage End Date [facility] [address] [place] [address] [phone] [id number] Corinna Griffiths Self - patient is the insured Medical (General) History Medical History History ICD Code Seasonal allergies Hypertension rectal pain Reflux Surgical History Surgery Date(Month/Year) vein surgery, left leg
--- OUTSIDE RECORDS SUMMARY | 2024-08-14 13:21 | XMS_ITS ---
Author Organization [facility] Address [address] [place] [address] Care Team Providers Care Trailer Park Manager Name Role Phone Jim Wilkes Primary Care Provider Unav ailable Alonso Klein Unavailable [phone] Allergies Allergen (clinical drug ingredient) Drug/Non Drug Allergy documented on EMR Reaction Allergy Type Onset Date Status Pollen Pollen runny nose Allergy Active REASON FOR VISIT Ingrown Nail, Skin Problem Medications Medication SIG (Take, Route, Frequency, Duration) [...] Ordered Date Performed Result Body Sit e 98289-Pqxqzluq Plate 06/14/2024 N/A Encounters Encounter Location Date [facility] [address] [address] 06/14/2024 Alonso Klein Ingrown nail L60.0 and Tinea pedis of both feet B35.3 Assessments Encounter Date Diagnosis (ICD Code) Assessment Notes Treatment Notes Treatment Clinical Notes Section Notes 06/14/2024 Ingrown nail (ICD-10 - L60.0) 06/14/2024 Tinea pedis of both feet (ICD-10 - B35.3) Plan Of Treatment Medication Medication Name Sig Start Date Stop Date Notes Ciclopirox Olamine 0.77 % 1 application Externally Twice a day to skin of feet including between the toes for 30 days Pending Test Test Name Order Date 33837-Ykyszypb Plate 06/14/2024 Next Appt Details Follow Up: prn, Reason: Procedure Notes * Category Sub-Category Detail Notes Nail Avulsion Procedure A fine sterile e levator was placed between the eponychium, nail fold, and nail plate to separate the structures. A sterile nail splitter, and/or sterile 316 blade, was then used to longitudinally section the nail along its entire length through the eponychium to the area under the nail fold. The offending portion of nail was from the nail bed with a rolling action and then removed with a hemostat. No underlying bone was identified. There was minimal bleeding as hemostasis was achieved through the temporary use of either a digital tourniquet or the aforementioned local with epinephrine. A bacitracin sterile dressing was applied. Local wound aftercare instructions were discussed and dispensed. The patient was informed of both conservative and future surgical procedures to prevent recurrence. Tylenol or Motrin was recommended for pain or discomfort (96803) Anesthesia 3cc of 1 percent Lid ocaine/Epi 1:200,000 local anesthesic utilizing aseptic technique Location Lateral nail border , T5 Progress Notes * Corinna FIOREDOB:1965 (58 yo M)Acc No.[id number]:06/14/2024 Progress Notes Patient:?Corinna Fiore Provider:?Alonso Klein DPM :1965???Age:58 Y???Sex:Male Adalberto e:06/14/2024 Address:[address] [place] [address] [facility] Pcp:Jim Glogowski, LICENSED MENTAL HEALTH COUNSELOR-BC Subjective: * Chief Complaints: * ???Agnes AshtonSkin Problem * HPI: ???Skin problems:?Nature:?scaling , redness.?Location:?B/L .?Duration:?several days.?Course:?worse.? * ROS:?General/Constitutional:?Nausea?denies.?Vomiting?denies.?Hunger Thirst?denies.?Loss appetite?denies.?Chills?denies.?Fatigue?denies.?Fever?denies.?Night Sweats?denies.?Unexplained weight loss?denies.?Unexplained weight gain?denies.?HEENTM:?Dentures?denies.?Dizziness?denies.?Glasses/contacts?admits.?Retinopathy?de nies.?Blurred/double vision?denies.?TMJ?denies.?Discharge/drainage?denies.?Implants?denies.?Sore throat?denies.?Dental implants?denies.?Hard of hearing ?denies.?Difficulty chewing/swallowing/speaking?denies.?Nose bleeds?denies.?Sore mouth?denies.?Respiratory:?On Oxygen?denies.?Pneumonia/pleurisy?denies.?Bronchitis?denies.?Emphysema?denies.?C oughing?denies.?Cough blood?denies.?Shortness of breath?denies.?Wheezing?denies.?Cardiovascular:?Pacemaker?denies.?MVP?denies.?WPW?denies.?CHF?denies.?Heart attack?denies.?Septal defect?denies.?Rapid beat?denies.?Chest pain ?denies.?Atrial Fib.?denies.?Murmur/Palpitations?denies.?Gastrointestinal:?Hemorrhoids?denies.?Stomach/Abdominal pain?denies.?Dark blood stool?denies.?Irritable bowel ?denies.?Constipation?denies.?Diarrhea?denies.?Hematology:?Swelling?denies.?Clots?denies.?Varicose Veins?denies.?Bruising?denies.?Bleeding problem?denies.?Genitourinary:?Blood urine?denies.?Frequent/Painfu/urination/bladder control?denies.?Kidney stones?denies.?Infection (UTI)?denies.?Nephropathy?denies.?sex trans dis (STD)?denies.?Prostate?denies.?Musculoskeletal:?Hammertoes?denies.?Bunions?denies.?Back Pain?denies.?Muscle Cramps/ Resting?denies.?Muscle cramps / walking?denies.?Generalized aches and pains?denies.?Weakness?denies.?Integ.:?[place]?denies.?Scars?denies.?Corns/calluses?denies.?Ingrown nails?admits.?Painful nails?denies.?Open Sores?denies.?Rashes?denies.?Neurologic:?Difficulty sleeping?denies.?Brain disorder?denies.?Numbness?denies.?Balance trouble?denies.?Confusion?denies.?Fainting/blackouts?denies.?Tingling?denies.?Tr emors?denies.? * Medical History:? * Surgical History:?vein surge ry, left leg * Hospitalization/Major Diagno stic Procedure:?No Hospitalization History. * Family History:?Mother: vika timmons, diagnosed with Unspecified essential hypertension.?Father: , diagnosed with Diabetic - NIDDM.? * Social History:?Tobacco Use:?Tobacco Use/Smoking?Are you a:?nonsmoker ?Additional Findings: Tobacco Non-User?Current non-smoker ?Tobacco use other than smoking?Are you an other tobacco user??No ???Drugs/Alcohol:?Drugs?Have you used drugs other than those for medical reasons in the past 12 months??No ?Alcohol Screen?Did you have a drink containing alcohol in the past year??No ?Points?0 ?Interpretation?Negative ???Miscellaneous:?Caffeine: yes, 1-2 cups per day. ?Exercise: yes, walking. ?Marital status: . ?Occupation: Works Full-time. * Medications:?TakingMultivita min Furosemide 20 MG Tablet Oral Omeprazole 20 MG Capsule Delayed Release Oral hydroCHLOROthiazide 25 MG Tablet Oral Medication List reviewed and reconciled with the patientTaking Multivitamin Taking Furosemide 20 MG Tablet Oral Taking Omeprazole 20 MG Capsule Delayed Release Oral Taking hydroCHLOROthiazide 25 MG Tablet Oral Medication List reviewed and reconciled with the patient * Allergies:?Pollen: runny nos eyes[Allergies Verified] Objective: * Vitals:?Ht: 5ft 8in, Wt:220, BMI:33.45, Shoe size: 11.5, Ht-cm: 172.72 cm, Wt- k.79 kg. * Examination: ???Ingrown Nail: ?INSPECTION:?Reveals nail incurvation, pain on palpation, groove hypertrophy , Lateral nail border , T5.?General Examination: ?GENERAL APPEARANCE:?Reveals a pleasant, alert, well-nourished, well- developed, well hydrated individual, who demonstrates proper attention to hygiene/body habitus, and is in no acute distress, Pt serves as own?historian for office visit today.?ORIENTED:?person, place, and time.?Neurological: ?SENSORY:?Neurological exam reveals intact sensorium, pain sensation normal, vibration sensation intact, pinprick sensation is normal in the lower extremities, Pt denies, anesthesia, burning, paresthesia, tingling, B/L.?DEEP TENDON REFLEXES:?Achilles, 2/4, B/L.?Vascular: ?DP PULSES(B):?3/4, B/L.?PT PULSES(B):?3/4, B/L.?CAPILLARY FILL TIME:?immediate, all digits, B/L.?TROPHIC CONDITION-TEXTURE/ELASTICITY/TURGOR/HAIR GROWTH(B):?normal, B/L.?TEMPERTURE GRADIENT(C):?warm to cool, proximal to distal, B/L.?PIGMENTATION:?normal, B/L.?EDEMA(C):?absent, B/L.?Dermatologic: ?SKIN FINDINGS:? Skin shows sign(s) of, erythema, scaling, in a moccasin fashion, no fissure(s) present, B/L, Skin shows sign(s) of, inflammation, interdigital maceration, vesicles, pruritus, B/L.?Orthopedic: ?MUSCLE STRENGTH:?5/5 all groups in a symmetrical fashion , B/L.? Assessment: * Assessment: 1.?Ingrown nail - L60.0, Lat eral nail border, T5?2.?Tinea pedis of both feet - B35.3, Acute problem, Uncomplicated (3),Rx drug management (4)? Plan: * Treatment: 2.?Tinea pedis of both feet? Start Ciclopirox Olamine Cream, 0.77 %, 1 application, Externally, Twice a day to skin of feet including between the toes, 30 days, 60, Refills 2.?? * Procedures:?Nail Avulsion:?Location?Lateral nail border , T5.?Anesthesia?3cc of 1 percent Lidocaine/Epi 1:200,000 local anesthesic utilizing aseptic technique.?Procedure?A fine sterile elevator was placed between the eponychium, nail fold, and nail plate to separate the structures. A sterile nail splitter, and/or sterile 316 blade, was then used to longitudinally section the nail along its entire length through the eponychium to the area under the nail fold. The offending portion of nail was from the nail bed with a rolling action and then removed with a hemostat. No underlying bone was identified. There was minimal bleeding as hemostasis was achieved through the temporary use of either a digital tourniquet or the aforementioned local with epinephrine. A bacitracin sterile dressing was applied. Local wound aftercare instructions were discussed and dispensed. The patient was informed of both conservative and future surgical procedures to prevent recurrence. Tylenol or Motrin was recommended for pain or discomfort (22642).? * Procedure Codes:?57450 Avuls ion Plate, Modifiers: T5 * Preventive Medicine:? ??Counseling:?Discussion:?-03: Office or other outpatient visit for the evaluation and management of a new patient, which required a medically appropriate history and/or examination and LOW level of DECISION MAKING for: 1 STABLE ACUTE UNCOMPLICATED PROBLEM, 2 OR MORE MINOR PROBLEMS, OR 1 STABLE CHRONIC PROBLEM, THAT POSE(S) A LOW RISK FOR MORBIDITY/MORTALITY. The visit on the day of the encounter encompassed interpreting the data and educating the patient as to the nature of their condition, treatment options available according to their individual PMH, meds, allergies, and overall health/living conditions, as well as any potential risks or complications that may occur from a failure to adhere to, and participate in, the recommended course of therapy. The discussion included a complete verbal, and/or written explanation of the examination results, any x-rays taken, the proposed diagnosis, and outline of the treatment plan. A schedule for future care needs was also explained. The patient verbalized an understanding of the instructions at this time and agreed to be an active participant in their treatment. If the patient should think of any questions or concerns after the visit, I have encouraged the patient to call the office.?Tinea Pedis:?The patient was counseled on the diagnosis, potential etiologies, and treatment options for their skin condition. We discussed the risks and benefits of each option from performing no treatment, to utilizing OTC topical skin creams, prescription topical creams, customized compounded topical medications, and, if necessary, to utilize oral antifungal therapy. We discussed the advantages and disadvantages of each possible treatment and importance for adherence to all the recommended therapies for optimum success and avoid potential complications such as open sore/infection/possible hospitalization. We discussed the potential effectiveness of each topical preparation as well as each ones possible side effects and/or patient medication interactions if oral therapy is selected. Patient questions re: the advantages and disadvantages of each treatment choice, medication use/dosage, successful outcomes, and application consistency were reviewed and the patient verbalized that all answers were clearly understood. The patient was told they can help alleviate symptoms by utilizing moisture absorbant innersoles with activated charcoal and baking soda, applying antifungal sprays daily, aerating toe web spaces at night by putting cotton or lambs wool between the toes, alternating shoe gear daily if possible so they can dry out, changing socks at least once during the day, wearing well-ventilated shoes or sandals. The patient has decided to apply antifungal skin creams to their feet as directed. Rx was sent to their pharmacy at the time of visit.? * Follow Up:?prn * Images: * Sign off status: Completed true * Provider:?Alonso Klein DPM Date:?2023 Generated for Can alcocer/Mary/Domingo on:?08/14/2024 01:21 PM EST History and Physical Notes * HPI (History of Present Illness) Category Sub-Category Detail Notes Category Not es Skin problems Nature: scaling , redness Location: B/L Duration: several days Course: worse Examination Category Sub-Category Detail Notes Category Not es Ingrown Nail INSPECTION: Reveals nail inc urvation, pain on palpation, groove hypertrophy , Lateral nail border , T5 Neurological SENSORY: Neurological exa m reveals intact sensorium, pain sensation normal, vibration sensation intact, pinprick sensation is normal in the lower extremities, Pt denies, anesthesia, burning, paresthesia, tingling, B/L DEEP TENDON REFLEXES: Achilles, 2/4, B/L Dermatologic SKIN FINDINGS: Skin shows sign( s) of, erythema, scaling, in a moccasin fashion, no fissure(s) present, B/L, Skin shows sign(s) of, inflammation, interdigital maceration, vesicles, pruritus, B/L Orthopedic MUSCLE STRENGTH: 5/5 all groups in a symm etrical fashion , B/L General Examination GENERAL APPEARANCE: Reveals a pleasant, alert, well- nourished, well-developed, well hydrated individual, who demonstrates proper attention to hygiene/body habitus, and is in no acute distress, Pt serves as own historian for office visit today ORIENTED: person, place, and t manuel Vascular DP PULSES (B): 3/4, B/L PT PULSES (B): 3/4, B/L CAPILLARY FILL TIME: immediate, all digi ts, B/L TEMPERTURE GRADIENT (C): warm to cool, p roximal to distal, B/L TROPHIC CONDITION-TEXTURE/ELASTICITY/TURGOR/HAIR GROWTH (B): normal, B/L EDEMA (C): absent, B/L PIGMENTATION: normal, B/L
== END 2024-08-14 12:11 | disposition home or self-care (01) ==
PROVIDERS: PCP Nurse Practitioner Family; Visit Provider Nurse Practitioner Family
DX: I10 Essential (primary) hypertension (principal); B35.6 Tinea cruris

== ENCOUNTER 2024-08-14 11:34 | Outpatient (REF) | payer BC, SELFPAY ==
[2024-08-14 13:12] LABS: Appearance Urine Clear; Color Urine Yellow; Glucose Urine UA Negative (Negative); Leukocyte Esterase Urine Negative (Negative); Nitrite Urine Negative (Negative); PH 5.5 (5.0-9.0); Specific Gravity - Urine 1.025 (1.005-1.025); Urine Blood Negative (Negative); Urine Ketones Negative (Negative); Urine Protein Negative (Neg-Trace)
[2024-08-14 13:21] LABS: MANUAL DIFF FLAG NO
[2024-08-14 13:23] LABS: Basophils Percent Auto 0.5 % (0-2); Eosinophils Absolute Auto 0.3 X10*3/uL (0.0-0.4); Eosinophils Percent Auto 3.7 % (0-4); Hematocrit 44.8 % (42.0-52.0); Hemoglobin 15.2 g/dl (14.0-18.0); Imm Gran Abs Auto 0.02 X10*3/uL (0.00-0.03); Imm Gran Pct Auto 0.3 % (0.0-0.4); Lymphocytes Absolute Auto 2.8 X10*3/uL (1.2-4.9); Lymphocytes Percent Auto 34.9 % (20-40); Mean Corpuscular HGB Conc 33.9 g/dl (31.0-36.0); Mean Corpuscular Hemoglobin 29.6 pg (27.0-33.0); Mean Corpuscular Volume 87.2 fL (80.0-98.0); Mean Platelet Volume 9.5 fL (9.4-12.4); Monocytes Absolute Auto 0.6 X10*3/uL (0.1-1.2); Monocytes Percent Auto 7.2 % (2-11); Neutrophils Absolute Auto 4.2 x10*3/uL (2.0-8.3); Neutrophils Percent Auto 53.4 % (45-73); Platelet Count 267 X10*3/uL (160-400); Red Blood Count 5.14 X10*6/uL (4.60-5.80); White Blood Count 7.9 X10*3/uL (4.8-10.8)
[2024-08-14 13:56] LABS: Alanine Aminotransferase 45 U/L (0-40); Albumin Level 4.2 g/dL (3.5-5.0); Alkaline Phosphatase 76 U/L (39-117); Anion Gap 9 (12-20); Aspartate Amino Transferase 32 U/L (5-37); Bilirubin Total 0.5 mg/dL (0.0-1.0); Blood Urea Nitrogen 13 mg/dL (9-16); Calcium 9.2 mg/dL (8.4-10.2); Carbon Dioxide 25 mmol/L (22-29); Chloride 111 mmol/L (96-108); Cholesterol 166 mg/dL (<200); Estimated Glomerular Filt Rate > 60; Glucose Fasting 98 mg/dL (60-99); HDL Cholesterol 43 mg/dL (>40); LDL Cholesterol Calculated 101 mg/dL (<100); Potassium 3.7 mmol/L (3.3-5.1); Sodium 141 mmol/L (135-145); Total Protein 7.2 g/dL (6.5-8.0); Triglycerides 113 mg/dL (<150)
[2024-08-14 14:04] LABS: TSH reflex Free T4 3.35 uIU/mL (0.32-4.0)
== END 2024-08-14 11:35 | disposition home or self-care (01) ==
LOC: HO.HMGCLDS 11:34
PROVIDERS: PCP Nurse Practitioner Family; Visit Provider Nurse Practitioner Family
DX: I10 Essential (primary) hypertension (principal)
CPT/HCPCS: 36415; 80053; 80061; 81003; 84443; 85025

== ENCOUNTER 2024-08-24 10:17 | Outpatient (REF) | payer BC, SELFPAY ==
--- NOTE | ~2024-08-24 | US_ITS ---
CLINICAL HISTORY: R74.8 - Abnormal levels of other serum enzymes US abdomen complete Comparison: None Findings: The visualized pancreas is normal. The aorta and inferior vena cava are normal caliber. The liver is normal in size and echotexture. There is no intrahepatic bile duct dilatation. The common duct is 4.3 mm in diameter. There are gallstones with the gallbladder otherwise unremarkable. There is no sonographic Colindres sign. The main portal vein is antegrade. The right kidney is 10.0 cm in length. The left kidney is 10.5 cm in length. The spleen is normal. No ascites. IMPRESSION: 1. Cholelithiasis. This document has been electronically signed by: Jose A Nunez MD on 08/25/2024 06:44:26
== END 2024-08-24 10:18 | disposition home or self-care (01) ==
LOC: HO.HMGCX 10:17
PROVIDERS: PCP Nurse Practitioner Family; Visit Provider Nurse Practitioner Family
DX: R74.8 Abnormal levels of other serum enzymes (principal)
CPT/HCPCS: 76700

== ENCOUNTER → 2024-08-24 10:20 | Outpatient (BNV) | payer BC, SELFPAY | PROVIDERS: PCP Nurse Practitioner Family; Visit Provider Specialist | DX: K80.20 Calculus of gallbladder without cholecystitis without obstruction (principal) | CPT/HCPCS: 76700 ==

== ENCOUNTER 2024-10-12 14:41 | Outpatient (REF) | payer BC, SELFPAY ==
[2024-10-12 17:00] LABS: Albumin Level 4.1 g/dL (3.5-5.0); Alkaline Phosphatase 71 U/L (39-117); Anion Gap 11 (12-20); Aspartate Amino Transferase 29 U/L (5-37); Bilirubin Total 0.5 mg/dL (0.0-1.0); Blood Urea Nitrogen 12 mg/dL (9-16); Calcium 9.2 mg/dL (8.4-10.2); Carbon Dioxide 27 mmol/L (22-29); Chloride 106 mmol/L (96-108); Estimated Glomerular Filt Rate > 60; Glucose Fasting 93 mg/dL (60-99); Potassium 3.8 mmol/L (3.3-5.1); Sodium 140 mmol/L (135-145); Total Protein 7.4 g/dL (6.5-8.0)
[2024-10-12 17:47] LABS: Alanine Aminotransferase 33 U/L (0-40)
--- OUTSIDE RECORDS SUMMARY | 2024-10-12 18:06 | XMS_ITS ---
Author Organization [facility] Address [address] [place] [address] Care Team Providers Care Lead Nuclear Medicine Technologist Name Role Phone Jim Wilkes Primary Care Provider Unav ailable Alonso Klein Unavailable [phone] REASON FOR VISIT 2 inch Cob[place], toe ho Encounters Encounter Location Date Provider Diagnosis [facility] [address] [address] 06/14/2024 Alonso Klein Plan Of Treatment No Information Progress Notes * Corinna FIOREDOB:1965 (58 yo M)Acc No.[id number]:06/14/2024 Patient:?Corinna Fiore :1965???Age:58 Y???Sex:Male Address:[address] [place] [address], [address] * true * Date:? Generated for Can alcocer/Mary/eTransmitting on:?10/12/2024 06:06 PM EST
--- OUTSIDE RECORDS SUMMARY | 2024-10-12 18:06 | XMS_ITS | Patient Health Record ---
Author Organization [facility] Address [address] [place] [address] Care Team Providers Care Veterinary Livestock Inspector Name Role Phone Jim Wilkes Primary Care Provider Alonso Ordaz Unavailable [phone] Allergies Allergen (clinical drug ingredient) Drug/Non Drug [...] Ordered Date Performed Result Body Sit e 02337-Xweontcn Plate 06/14/2024 N/A Encounters Encounter Location Date Provider Diagnosis [facility] [address] [address] 06/14/2024 Alonso Latoya Ingrown nail L60.0 and Tinea pedis of both feet B35.3 [facility] [address] [facility] [address] [place] [address] 06/14/2024 Alonso Klein Assessments Encounter Date Diagnosis (ICD Code) Assessment Notes Treatment Notes Treatment Clinical Notes Section Notes 06/14/2024 Ingrown nail (ICD-10 - L60.0) 06/14/2024 Tinea pedis of both feet (ICD-10 - B35.3) Plan Of Treatment Pending Test Test Name Order Date [id number] Plate 06/14/2024 Insurance Providers Payer Name Payer Address Payer Phone Subscriber Number Group Number Insured Name Patient Relationship to Insured Coverage Start Date Coverage End Date [facility] [address] [place] [address] [id number] Corinna Griffiths Self - patient is the insured Medical (General) History Medical History History ICD Code Seasonal allergies Hypertension rectal pain Reflux Surgical History Surgery Date(Month/Year) vein surgery, left leg
--- OUTSIDE RECORDS SUMMARY | 2024-10-12 18:06 | XMS_ITS ---
Author Organization [facility] Address [address] [place] [address] Care Team Providers Care Accounts Payable Professional Name Role Phone Jim Wilkes Primary Care Provider Unav ailable Alonso Klein Unavailable [phone] Allergies Allergen (clinical drug ingredient) Drug/Non Drug [...] Ordered Date Performed Result Body Sit e 92244-Ftbduube Plate 06/14/2024 N/A Encounters Encounter Location Date [facility] [address] [address] 06/14/2024 Alonso Klein Ingrown nail L60.0 and [...] days Pending Test Test Name Order Date 14844-Lwldergc Plate 06/14/2024 Next Appt Details Follow Up: [...] Motrin was recommended for pain or discomfort (88566) Anesthesia 3cc of 1 percent Lid ocaine/Epi 1:200,000 local anesthesic utilizing aseptic technique Location Lateral nail border , T5 Progress Notes * Corinna FIOREDOB:1965 (58 yo M)Acc No.[id number]:06/14/2024 Progress Notes Patient:?Corinna Fiore Provider:?Alonso Klein DPM :1965???Age:58 Y???Sex:Male Adalberto e:06/14/2024 Address:[address] [place] [address] [id number] Pcp:Jim Glogowski, CARE MANAGER-BC Subjective: * Chief Complaints: * ???Agnes AshtonSkin [...] Motrin was recommended for pain or discomfort (64829).? * Procedure Codes:?65554 Avuls ion Plate, Modifiers: T5 * Preventive [...] Klein DPM Date:?2023 Generated for Can alcocer/Mary/Domingo on:?10/12/2024 06:05 PM EST History and Physical Notes * [...]
== END 2024-10-12 14:42 | disposition home or self-care (01) ==
LOC: HO.HMGCLDS 14:41
PROVIDERS: PCP Nurse Practitioner Family; Visit Provider Nurse Practitioner Family
DX: R74.8 Abnormal levels of other serum enzymes (principal)
CPT/HCPCS: 36415; 80053

== ENCOUNTER 2024-11-10 14:56 | Outpatient (AMB) | payer BC, SELFPAY ==
--- NOTE | 2024-11-10 15:04 | A.OFFPC_ITS ---
Vital Signs 3 11/10/24 15:08 Height 5 ft 8 in Weight 208 lb 2 oz BMI 31.6 BP 114/70 Blood Pressure Location Lt brachial Position Sitting Pulse 90 Pulse Source Pulse Oximeter Temp 97.3 F Temp Source Temporal Artery Scan Pulse Oximetry (%) 97 Oxygen Delivery Method Room Air Intake Visit Reasons: HDF - [facility] (danilo mckeon) Allergies SEASONAL ALLERGIES Allergy (Intermediate, Uncoded 08/14/24 11:37) RUNNY NOSE pollen Allergy (Unknown, Uncoded 08/14/24 11:37) Runny Nose Tobacco use date assessed: 08/14/24 Dental Screening Dental Screen Date: 08/14/24 HPI HPI Comments 2 History of Present Illness0 Details 59 y/o male patient who presents to the clinic for HDF. Pt presented to [facility] on 10/25 with c/o RUQ abdominal pain. Abdominal U/S showed Acute Cholelithiasis without evidence of Cholecystitis. CT Abdomen showed; Equivocal for Cholecystitis. Pt was admitted 10/25 - 10/27 for Cholecystectomy. [facility] Medical History (Updated 08/14/24 @ 15:38 by Danilo Castellanos, [facility]) Rectal pain High BMI Hypertension Surgical History (Updated 11/10/24 @ 15:28 by Stella Felix NP) Status post laparoscopic cholecystectomy No pertinent past surgical history Social History Housing: House Alcohol intake: never Patient Tobacco Use Status: Never used Tobacco e-Cigarette/Vaping Use: Never Used Second Hand Smoke Exposure: No Current occupational status: employed Current occupation: [employer] Current occupational exposures/hazards: No Cognitive needs: No Hearing needs: No Vision needs: No Questionnaire Thrive Questionnaire Date Thrive assessed: 08/11/24 I am a: Patient What is your living situation today?: I have a steady place to live Within the past 12 months, did the food you bought not last and you didn't have the money to get more?: Never true Within the past 12 months, did you worry whether your food would run out before you got money to buy more?: Never true Do you have trouble paying for medicines?: No Do you have trouble getting transportation to medical appointments?: No Do you have trouble paying your heating and electricity bill?: I choose not to answer this question Do you have trouble taking care of your child, family member or friend?: No Do you have trouble with day-to-day activities such as bathing, preparing meals, shopping, managing finances, etc.?: No Are you currently unemployed and looking for a job?: No Are you interested in more education?: No Please select the resources that you would like help with: None Currently or been in a relationship where the following occur: I choose not to answer THRIVE Score: 0 KYA-7 AMB Questionnaire KYA-7 Date KYA - 7 assessed: 11/10/24 Feeling nervous, anxious, or on edge: 0 = Not at all Not being able to stop or control worryin = Not at all Worrying too much about different things: 0 = Not at all Trouble relaxin = Not at all Being so restless that it is hard to sit still: 0 = Not at all Becoming easily annoyed or irritable: 0 = Not at all Feeling afraid as if something awful might happen: 0 = Not at all Total KYA-7 score (0-4 normal; 5-9 mild; 10-14 moderate; 15-21 severe): 0 Source: Developed by Drs. Boubacar Davidson, Pauly Cordero, Chuck White and colleagues, with an educational jessica from [employer]. Review of Systems Const All systems reviewed & are unremarkable except as noted in HPI and below Physical exam (Primary Care) Vital Signs: Last Vital Signs Temp 97.3 F 11/10/24 15:08 Pulse 90 11/10/24 15:08 BP 114/70 11/10/24 15:08 Pulse Ox 97 11/10/24 15:08 Oxygen Delivery Method Room Air 11/10/24 15:08 BMI result Body Mass Index 31.6 Tobacco/Smoking Status: Tobacco use Status Tobacco use date assessed 08/14/24 11/10/24 15:04 Patient Tobacco Use Status Never used Tobacco 11/10/24 15:04 e-Cigarette/Vaping Use Never Used 11/10/24 15:04 Thrive Assessment: Date of Thrive Assessment Date Thrive assessed 08/11/24 11/10/24 15:04 Currently or been in a relationship where the following occur: I choose not to answer Const General: no acute distress Nutritional Appearance: overweight Orientation/consciousness: patient oriented x3 Resp Effort & Inspection: normal respiratory effort Auscultation: clear to auscultation bilaterally Cardio Rhythm: regular rhythm Heart sounds: S1 normal heart sound present and S2 normal heart sound present GI Palpation (GI): Soft to palpation, not firm, nontender, no guarding, not rigid and No hepatosplenomegaly present Auscultation: normal bowel sounds Rectal Exam - Male: Yes deferred Abdomen image: 2 1. Small well healed surgical scars. Skin dry, [place] and no infections. Neuro General: patient oriented x3, gait normal and moves all extremities Psych Speech and movement: Normal speech and movement present Coding Level of Care Code Est Pt Level 4 (51004) Diagnoses Status post laparoscopic cholecystectomy Z90.49 Time Spent (min) 20 Assessment & Plan Assessment & Plan (1) Status post laparoscopic cholecystectomy: Code(s): Z90.49 - Acquired absence of other specified parts of digestive tract Category: Surgical Plan: Pt had Post-Op surgery appointment yesterday. Educated on Diet after Gallbladder surgery Acetaminophen for pain relief.
[2024-11-10 15:08] VITALS: BP 114/70; PULSE 90; TEMP 36.3; O2SAT 97; BMI 31.6
--- OUTSIDE RECORDS SUMMARY | 2024-11-10 16:24 | XMS_ITS ---
Author Organization [facility] Address [address] [place] [address] Care Team Providers Care Brushing Machine Operator Name Role Phone Jim Wilkes Primary Care Provider Unav ailable Alonso Klein Unavailable [phone] Allergies Allergen (clinical drug ingredient) Drug/Non Drug [...] Ordered Date Performed Result Body Sit e 19054-Lqgmprqq Plate 06/14/2024 N/A Encounters Encounter Location Date Provider [facility] [address] [address] 06/14/2024 Alonso Klein Ingrown nail L60.0 and [...] days Pending Test Test Name Order Date 54223-Lbagcaqp Plate 06/14/2024 Next Appt Details Follow Up: [...] Motrin was recommended for pain or discomfort (76778) Anesthesia 3cc of 1 percent Lid ocaine/Epi 1:200,000 local anesthesic utilizing aseptic technique Location Lateral nail border , T5 Progress Notes * Corinna FIOREDOB:1965 (58 yo M)Acc No.[id number]:06/14/2024 Progress Notes Patient:?Corinna Fiore Provider:?Alonso Klein DPM :1965???Age:58 Y???Sex:Male Adalberto e:06/14/2024 Address:[address] [place] [address] [facility] Pcp:Jim Glogowski, PUBLIC ADMINISTRATION PROFESSOR-BC Subjective: * Chief Complaints: * ???Agnes AshtonSkin [...] Motrin was recommended for pain or discomfort (30319).? * Procedure Codes:?39094 Avuls ion Plate, Modifiers: T5 * Preventive [...] Klein DPM Date:?2023 Generated for Can alcocer/Mary/Domingo on:?11/10/2024 04:23 PM EDT History and Physical Notes * HPI (History [...]
--- OUTSIDE RECORDS SUMMARY | 2024-11-10 16:24 | XMS_ITS ---
Author Organization [facility] Address [address] [place] [address] Care Team Providers Care Community Health Navigator Name Role Phone Jim Wilkes Primary Care Provider Unav ailable Alonso Klein Unavailable [phone] REASON FOR VISIT 2 inch Coban, toe ho Encounters Encounter Location Date Provider Diagnosis [facility] [address] [address] 06/14/2024 Alonso Klein Plan Of Treatment No Information Progress Notes * Corinna FIOREDOB:1965 (58 yo M)Acc No.[id number]:06/14/2024 Patient:?Corinna Fiore :1965???Age:58 Y???Sex:Male Address:[address] [place] [address], [address] * true * Date:? Generated for Can alcocer/Mary/eTransmitting on:?11/10/2024 04:23 PM EDT
--- OUTSIDE RECORDS SUMMARY | 2024-11-10 16:24 | XMS_ITS | Patient Health Record ---
Author Organization [facility] Address [address] [place] [address] Care Team Providers Care Kitchen And Counter Worker Name Role Phone Jim Wilkes Primary Care Provider Alonso Ordaz Unavailable [phone] Allergies Allergen (clinical drug ingredient) Drug/Non Drug [...] Ordered Date Performed Result Body Sit e 99020-Gvhwyuuo Plate 06/14/2024 N/A Encounters Encounter Location Date Provider Diagnosis [facility] [place] [address] [address] 06/14/2024 Alonso Latoya Ingrown nail L60.0 and Tinea pedis of both feet B35.3 [facility] [place] [address] [facility] [address] [place] [address] 06/14/2024 Alonso Klein Assessments Encounter Date Diagnosis (ICD Code) Assessment Notes Treatment Notes Treatment Clinical Notes Section Notes 06/14/2024 Ingrown nail (ICD-10 - L60.0) 06/14/2024 Tinea pedis of both feet (ICD-10 - B35.3) Plan Of Treatment Pending Test Test Name Order Date 89122-Cfqyboow Plate 06/14/2024 Insurance Providers Payer Name Payer Address Payer Phone Subscriber Number Group Number Insured Name Patient Relationship to Insured Coverage Start Date Coverage End Date [facility] [address] [place] [address] [phone] [id number] Corinna Griffiths Self - patient is the insured Medical (General) History Medical History History ICD Code Seasonal allergies Hypertension rectal pain Reflux Surgical History Surgery Date(Month/Year) vein surgery, left leg
== END 2024-11-10 15:23 | disposition home or self-care (01) ==
LOC: HO.HMCH 14:57
PROVIDERS: PCP Nurse Practitioner Family; Visit Provider Nurse Practitioner Family
DX: Z90.49 Acquired absence of other specified parts of digestive tract (principal)

== ENCOUNTER → 2024-11-10 14:56 | Outpatient (BNVA) | payer BC, SELFPAY | PROVIDERS: PCP Nurse Practitioner Family; Visit Provider Nurse Practitioner Family ==

== ENCOUNTER 2025-03-12 14:59 | Outpatient (AMB) | payer BC, SELFPAY ==
[2025-03-12 15:03] VITALS: BP 124/80; PULSE 99; O2SAT 96; BMI 31.5
--- NOTE | 2025-03-12 15:03 | MHC.PC.OV ---
Vital Signs 03/12/25 15:03 Height 5 ft 8 in Weight 207 lb BMI 31.5 BP 124/80 Blood Pressure Location Lt brachial Position Sitting Pulse 99 Pulse Source Pulse Oximeter Pulse Oximetry (%) 96 Oxygen Delivery Method Room Air Intake Visit Reasons: PE Documentation Nurse Required: No Accompanied by: Self / Same As Patient Allergies SEASONAL ALLERGIES Allergy (Intermediate, Uncoded 03/12/25 15:23) RUNNY NOSE pollen Allergy (Unknown, Uncoded 03/12/25 15:23) Runny Nose Medication List - Last Reconciled 03/12/25 by Jim Castellanos, HOT ROOM ATTENDANT- betamethasone dipropionate 0.05% 1 appl topical DAILY PRN betamethasone dipropionate 0.05% 1 appl topical BEDTIME PRN cetirizine (Allergy Relief (cetirizine)) 10 mg PO DAILY PRN hydrochlorothiazide 25 mg PO QAM hydrocortisone acetate (Anusol-HC) 25 mg MA BID PRN omeprazole 20 mg PO DAILY terbinafine HCl 250 mg PO DAILY 10 days Tobacco use date assessed: 03/12/25 Dental Screening Dental Screen Date: 03/12/25 Did you have a dental visit in the last 12 months?: Yes Did you have a dental problem in the last 6 months where you did not have access to dental care?: No Was dental information given to patient?: Patient has dentist HPI PE HPI Details History of Present Illness The patient is a 59-year-old male presenting with a physical examination. He reports intermittent right upper quadrant tenderness, which appears to be more pronounced with movement. The patient underwent a cholecystectomy in October, and it was explained that full recovery might take some time. There are no associated symptoms such as fever or chills, and the abdominal examination revealed no rebound tenderness or tenderness upon deep palpation. The patient denies any chest pain, shortness of breath, constipation, diarrhea, urinary issues, or any psychiatric symptoms such as suicidal or homicidal ideation. His colon cancer screening is up to date, and he has some scabbing on his knees bilaterally. Health Maintenance - Colon cancer screening is up to date Social History Review of Systems - Cardiovascular: Denies chest pain - Respiratory: Denies dyspnea - Gastrointestinal: Reports intermittent right upper quadrant tenderness; denies constipation or diarrhea - Psychiatric: Denies suicidal or homicidal ideation - General: Denies fever or chills - Genitourinary: Denies urinary issues Physical Exam General: Cooperative, healthy appearing, comfortable, no acute distress and well developed Orientation: Patient oriented x3 Limitations: No limitations Head: Normal to inspection Ears: Hearing grossly normal bilaterally Nose: Normal external nose present Face and sinus: Normal facial exam Eyes: Appearance normal, both eyes and all related structures Neck: Normal visual inspection and Yes full ROM Respiratory: Normal respiratory effort and able to speak in complete sentences. Clear to auscultation bilaterally Cardiovascular: Regular rate and rhythm. Normal S1 and S2 GI: Normal to inspection. Soft to palpation and nontender, except for a little bit of right upper quadrant tenderness intermittently, more with movement : Testicles without masses/lesions and no hernias appreciated Skin: Some scabbing to his bilaterally caps, macular erythema to inguinal regions (tinea) Neuro: Patient oriented x3 Extremities: Normal to inspection [facility] Medical History Rectal pain High BMI Hypertension Surgical History History of cholecystectomy Status post laparoscopic cholecystectomy No pertinent past surgical history Social History Housing: House Alcohol intake: never Patient Tobacco Use Status: Never used Tobacco e-Cigarette/Vaping Use: Never Used Second Hand Smoke Exposure: No Current occupational status: employed Current occupation: [employer] Current occupational exposures/hazards: No Cognitive needs: No Hearing needs: No Vision needs: No Questionnaire PHQ-9 Over the last 2 weeks, how often have you been bothered by any of the following problems? 1. Little interest or pleasure in doing things: not at all 2. Feeling down, depressed, or hopeless: not at all 3. Trouble falling or staying asleep, or sleeping too much: not at all 4. Feeling tired or having little energy: not at all 5. Poor appetite or overeating: not at all 6. Feeling bad about yourself - or that you are a failure or have let yourself or your family down: not at all 7. Trouble concentrating on things, such as reading the newspaper or watching television: not at all 8. Moving or speaking so slowly that other people could have noticed. Or the opposite - being so fidgety or restless that you have been moving around a lot more than usual: not at all 9. Thoughts that you would be better off or of hurting yourself in some way: not at all Total score: 0 Depression Screening Interpretation: Negative Depression Screening Done: Yes 74601 - PHQ-9 Billing: Yes Source: Developed by Drs. Boubacar Davidson, Pauly Cordero, Chuck White and colleagues, with an educational jessica from [employer]. Thrive Questionnaire Date Thrive assessed: 08/11/24 I am a: Patient What is your living situation today?: I have a steady place to live Within the past 12 months, did the food you bought not last and you didn't have the money to get more?: Never true Within the past 12 months, did you worry whether your food would run out before you got money to buy more?: Never true Do you have trouble paying for medicines?: No Do you have trouble getting transportation to medical appointments?: No Do you have trouble paying your heating and electricity bill?: I choose not to answer this question Do you have trouble taking care of your child, family member or friend?: No Do you have trouble with day-to-day activities such as bathing, preparing meals, shopping, managing finances, etc.?: No Are you currently unemployed and looking for a job?: No Are you interested in more education?: No Please select the resources that you would like help with: None Currently or been in a relationship where the following occur: I choose not to answer THRIVE Score: 0 KYA-7 AMB Questionnaire KYA-7 Date KYA - 7 assessed: 11/10/24 Feeling nervous, anxious, or on edge: 0 = Not at all Not being able to stop or control worryin = Not at all Worrying too much about different things: 0 = Not at all Trouble relaxin = Not at all Being so restless that it is hard to sit still: 0 = Not at all Becoming easily annoyed or irritable: 0 = Not at all Feeling afraid as if something awful might happen: 0 = Not at all Total KYA-7 score (0-4 normal; 5-9 mild; 10-14 moderate; 15-21 severe): 0 Source: Developed by Drs. Boubacar Davidson, Pauly Cordero, Chuck White and colleagues, with an educational jessica from [employer]. KYA-7 Assessment Billing KYA-7 Assessment Tool: KYA-7 Assessment 59518 Physical exam (Primary Care) Vital Signs: Last Vital Signs Pulse 99 03/12/25 15:03 BP 124/80 03/12/25 15:03 Pulse Ox 96 03/12/25 15:03 Oxygen Delivery Method Room Air 03/12/25 15:03 BMI result Body Mass Index 31.5 Tobacco/Smoking Status: Tobacco use Status Tobacco use date assessed 03/12/25 03/12/25 15:11 Patient Tobacco Use Status Never used Tobacco 03/12/25 15:11 e-Cigarette/Vaping Use Never Used 03/12/25 15:11 PHQ-9: PHQ-9 Score PHQ-9: Total score 0 03/12/25 15:11 Depression Screening Interpretation: Negative Thrive Assessment: Date of Thrive Assessment Date Thrive assessed 08/11/24 03/12/25 15:11 Currently or been in a relationship where the following occur: I choose not to answer Coding Level of Care Code Est Pt Level 3 (80088) Est Pt Prev Care 40-64y(50269) Diagnoses Physical exam Z00.00 Screening PSA (prostate specific antigen) Z12.5 Tinea cruris B35.6 Additional Codes KYA-7 Assessment Billing - KYA-7 Assessment Tool: KYA-7 Assessment 52604 ([id number]) PHQ-9 - 48561 - PHQ-9 Billing: Yes ([id number]) Assessment & Plan Assessment & Plan (1) Physical exam: Code(s): Z00.00 - Encounter for general adult medical examination without abnormal findings Category: Medical (2) Screening PSA (prostate specific antigen): Code(s): Z12.5 - Encounter for screening for malignant neoplasm of prostate Category: Medical (3) Tinea cruris: Code(s): B35.6 - Tinea cruris Category: Medical Plan . Orders: Orders Comprehensive Inman. Panel Fast Today Z00.00 - Encounter for general adult medical examination without abnormal findings Prostate Specific Antigen Scr Today Z12.5 - Encounter for screening for malignant neoplasm of prostate Complete Blood Count Auto Diff Today Z00.00 - Encounter for general adult medical examination without abnormal findings TSH reflex Free T4 Today Z00.00 - Encounter for general adult medical examination without abnormal findings UA CC w/rflx Micro + Cult Today Z00.00 - Encounter for general adult medical examination without abnormal findings Lipid Panel Today Z00.00 - Encounter for general adult medical examination without abnormal findings Medications: Refilled terbinafine HCl 250 mg PO DAILY 10 tabs 0RF 10 days
--- OUTSIDE RECORDS SUMMARY | 2025-03-12 15:05 | XMS_ITS | Patient Health Record ---
Author Organization [facility] Address [address] [place] [address] Care Team Providers Care Sanitarian Name Role Phone Jim Wilkes Primary Care Provider Unav Alonso Davenport Unavailable [phone] Allergies Allergen (clinical drug ingredient) Drug/Non Drug Allergy documented on EMR Reaction Allergy Type Onset Date Status Pollen Pollen runny nose Allergy Active Reason For Referral No Information Medications Medication SIG (Take, Route, Frequency, Duration) Notes Start Date End Date Status Multivitamin Active Furosemide 20 MG Oral; Duration: 4 Days Active Omeprazole 20 MG Oral; Duration: 30 Days Active hydroCHLOROthiazide 25 MG Oral; Duration: 90 Days Active Ciclopirox Olamine 0.77 % 1 application Externally Twice a day to skin of feet including between the toes; Duration: 30 days Active Social History Tobacco Use: [...] Ordered Date Performed Result Body Sit e 45535-Xrnsgvay Plate 06/14/2024 N/A Encounters Encounter Location Date Provider Diagnosis [facility] [address] [address] 06/14/2024 Alonso Barrettunier Ingrown nail L60.0 and Tinea pedis of both feet B35.3 [facility] [address] [address] 06/14/2024 Alonso Klein Assessments Encounter Date Diagnosis (ICD Code) Assessment Notes Treatment Notes Treatment Clinical Notes Section Notes 06/14/2024 Ingrown nail (ICD-10 - L60.0) 06/14/2024 Tinea pedis of both feet (ICD-10 - B35.3) Plan Of Treatment Pending Test Test Name Order Date [id number]-Dmsftuta Plate 06/14/2024 Insurance Providers Payer Name Payer Address Payer Phone Subscriber Number Group Number Insured Name Patient Relationship to Insured Coverage Start Date Coverage End Date [facility] [address] [place] [address] [id number] Corinna Griffiths Self - patient is the insured Medical (General) History Medical History History ICD Code Seasonal allergies Hypertension rectal pain Reflux Surgical History Surgery Date(Month/Year) vein surgery, left leg
== END 2025-03-12 16:26 | disposition home or self-care (01) ==
LOC: HO.HMCC 15:00
PROVIDERS: PCP Nurse Practitioner Family; Visit Provider Nurse Practitioner Family
DX: Z00.00 Encounter for general adult medical examination without abnormal findings (principal); B35.6 Tinea cruris

== ENCOUNTER → 2025-03-12 14:59 | Outpatient (BNVA) | payer BC, SELFPAY | PROVIDERS: PCP Nurse Practitioner Family; Visit Provider Nurse Practitioner Family | DX: Z00.00 Encounter for general adult medical examination without abnormal findings (principal); B35.6 Tinea cruris; Z13.31 Encounter for screening for depression | CPT/HCPCS: 96127 ==

== ENCOUNTER 2025-03-15 15:07 | Outpatient (REF) | payer BC, SELFPAY ==
--- OUTSIDE RECORDS SUMMARY | 2025-03-15 15:10 | XMS_ITS | Patient Health Record ---
Author Organization [facility] Address [address] [place] [address] Care Team Providers Care Unit Aide Name Role Phone Jim Wilkes Primary Care Provider Unav Alonso Davenport Unavailable [phone] Allergies Allergen (clinical drug ingredient) Drug/Non Drug [...] Ordered Date Performed Result Body Sit e 76960-Rdytmvak Plate 06/14/2024 N/A Encounters Encounter Location Date Provider Diagnosis [facility] [address] [address] 06/14/2024 Alonso Barrettunier Ingrown nail L60.0 and Tinea pedis of both feet B35.3 [facility] [address] [address] 06/14/2024 Alonso Klein Assessments Encounter Date Diagnosis (ICD Code) Assessment Notes Treatment Notes Treatment Clinical Notes Section Notes 06/14/2024 Ingrown nail (ICD-10 - L60.0) 06/14/2024 Tinea pedis of both feet (ICD-10 - B35.3) Plan Of Treatment Pending Test Test Name Order Date 22734-Xpwuxtny Plate 06/14/2024 Insurance Providers Payer Name Payer Address Payer Phone Subscriber Number Group Number Insured Name Patient Relationship to Insured Coverage Start Date Coverage End Date [facility] [id number] [place] [address] [id number] Corinna Griffiths Self - patient is the insured Medical (General) History Medical History History ICD Code Seasonal allergies Hypertension rectal pain Reflux Surgical History Surgery Date(Month/Year) vein surgery, left leg
[2025-03-15 15:24] LABS: MANUAL DIFF FLAG NO
[2025-03-15 16:04] LABS: Appearance Urine Clear; Glucose Urine UA Negative (Negative); PH 6.5 (5.0-9.0); Specific Gravity - Urine 1.015 (1.005-1.025)
[2025-03-15 16:07] LABS: Hematocrit 44.0 % (42.0-52.0); Hemoglobin 15.0 g/dl (14.0-18.0); Imm Gran Abs Auto 0.01 X10*3/uL (0.00-0.03); Imm Gran Pct Auto 0.1 % (0.0-0.4); Lymphocytes Absolute Auto 2.1 X10*3/uL (1.2-4.9); Mean Corpuscular HGB Conc 34.1 g/dl (31.0-36.0); Mean Corpuscular Hemoglobin 29.1 pg (27.0-33.0); Mean Corpuscular Volume 85.4 fL (80.0-98.0); NRBC Abs Auto 0.000 X10*3/uL (0.0-0.012); NRBC Pct Auto 0.0 /100WBC (0.0-0.2); Platelet Count 256 X10*3/uL (160-400); Red Blood Count 5.15 X10*6/uL (4.60-5.80); White Blood Count 7.9 X10*3/uL (4.8-10.8)
[2025-03-15 16:35] LABS: Alanine Aminotransferase 37 U/L (0-40); Albumin Level 4.4 g/dL (3.5-5.0); Anion Gap 11 (12-20); Aspartate Amino Transferase 31 U/L (5-37); Blood Urea Nitrogen 13 mg/dL (9-16); Calcium 9.1 mg/dL (8.4-10.2); Carbon Dioxide 26 mmol/L (22-29); Chloride 107 mmol/L (96-108); Cholesterol 165 mg/dL (<200); Estimated Glomerular Filt Rate > 60; HDL Cholesterol 40 mg/dL (>40); Potassium 3.8 mmol/L (3.3-5.1); Sodium 140 mmol/L (135-145); Total Protein 7.2 g/dL (6.5-8.0); Triglycerides 115 mg/dL (<150)
[2025-03-15 16:36] LABS: Alkaline Phosphatase 80 U/L (39-117)
[2025-03-16 08:16] LABS: HBS Num1 9.70 mIU/mL (0-7.99); HBc Num1 0.08 S/CO (0.00-0.79); HBsAGNum1 0.38 S/CO (0.00-0.99); Hepatitis A Antibody IgM 0.28 Index (0-0.79); Hepatitis B Surface Antigen Negative (Negative); ~HepC Num1 0.23 S/CO (0.00-0.79); ~Hepatitis A Antibody IgM Nonreactive (Nonreactive); ~Hepatitis C Antibody Nonreactive (Nonreactive)
[2025-03-16 09:38] LABS: HBS Num2 9.27 mIU/mL (0-7.99); HBS Num3 10.01 mIU/mL (0-7.99); ~Hepatitis B Surface Antibody GRAYZONE (Nonreactive)
== END 2025-03-15 15:08 | disposition home or self-care (01) ==
LOC: HO.LAB 15:07
PROVIDERS: PCP Nurse Practitioner Family; Visit Provider Nurse Practitioner Family
DX: Z12.5 Encounter for screening for malignant neoplasm of prostate (principal); Z11.59 Encounter for screening for other viral diseases; Z00.00 Encounter for general adult medical examination without abnormal findings; R74.8 Abnormal levels of other serum enzymes
CPT/HCPCS: 36415; 80053; 80061; 81003; 84153; 84443; 85025; 86704; 86706; 86709; 86803; 87340